=== PATIENT | female | born 1940 | race Caucasian/White ===

== ENCOUNTER → 2021-11-07 | Day surgery (SDC) | payer MEDICARE, OTHER ==
[~2021-11-07] MED LIST: DIPRIVAN 200 MG/20 ML IV ONE; Lactated Ringers 1,000 ML IV ONE; Lactated Ringers 1,000 ML IV SCH
--- NOTE | 2021-11-07 09:51 | HP ---
HISTORY OF PRESENT ILLNESS: This is a 81-year-old female who presents due to occasional indigestion, gas and nausea. She also has a history of reflux and Patel's disease. She is here for EGD. The patient denies any GI bleeding, no shortness of breath, no chest pain, no cough, no fatigue. She has lost five pounds. She has no abdominal pain and no other complaints. PAST MEDICAL HISTORY: Hypertension. Chronic obstructive pulmonary disease. Reflux. PAST SURGICAL HISTORY: Tonsillectomy and adenoidectomy. Cholecystectomy. Appendectomy. Hysterectomy. Partial colectomy. MEDICATIONS: Gabapentin, proton pump inhibitor, Enalapril, metoprolol, aspirin, fiber, clonidine, Seroquel. ALLERGIES: ERYTHROMYCIN. CODEINE. TETRACYCLINE. PREDNISONE. IODINATED CONTRAST MEDIA. SOCIAL HISTORY: Former tobacco use, quit 25 years ago. No alcohol use. FAMILY HISTORY: Lupus, coronary artery disease, breast cancer. PHYSICAL EXAMINATION: GENERAL: No acute distress. CVS: Regular rate and rhythm. PULMONARY: Nonlabored. ABDOMEN: Soft, nontender, nondistended. EXTREMITIES: Normal. DIAGNOSIS: Surveillance of Patel's disease and occasional indigestion, bloating and nausea. PLAN: EGD with biopsy.
[2021-11-07 13:43] VITALS: PULSE 65; O2SAT 93
[2021-11-07 14:25] VITALS: BP 171/81
--- NOTE | 2021-11-08 09:01 | OP ---
PROCEDURE DATE/TIME: 11/07/2021 1234 PREOPERATIVE DIAGNOSES: 1) History of Patel's esophagus. 2) Occasional indigestion and nausea. POSTOPERATIVE DIAGNOSES: 1) Mild gastritis. 2) Patel's esophagus. 3) Small hiatal hernia. PROCEDURE: EGD with biopsies. PROCEDURE PERFORMED BY: Cat Myles M.D. ESTIMATED BLOOD LOSS: Minimal. ANESTHESIA: MAC. COMPLICATIONS: None. SPECIMEN: 1) Gastric antrum to rule out Helicobacter pylori. 2) Distal esophagus at 37.5 cm. 3) Distal esophagus at 36.5 cm, known history of Patel's. HISTORY: This is a 81-year-old female who presents for surveillance of Patel's disease as well as some occasional indigestion and nausea. Risks, benefits, alternatives regarding EGD have been discussed with her in detail. She understands and agrees. She would like to proceed with EGD. DESCRIPTION OF PROCEDURE: She was brought to the endoscopy suite, laid in the left lateral decubitus position. A complete time out performed. First, a scope was inserted and gently advanced through the mouth into the oropharynx down into the esophagus, stomach and duodenum. Her duodenum looked normal. The edge of the papilla that was visualized looked normal. The scope was withdrawn into the stomach. The patient had mild gastritis in her antrum and body this is biopsied in antrum with cold forceps, site hemostatic and sent to pathology. Retroflexion view was done. She does have a small hiatal hernia that was visualized as well. The scope was then fully removed into the distal esophagus. She does have about a 1.5 cm column of what appears to be Patel's disease and then another area that is less than 1 cm with reflux changes. I biopsied all four quadrants at approximately 37.5 up 36.5 cm. Her gastroesophageal junction is at 37.5 cm. Taking bites of all concerning tissue with cold forceps and sent to pathology. We also took focused bites as well at 36.5 cm along the edge of the one column that reaches 36.5 cm as well as the adjacent quadrant to test this tissue as well. All biopsies were sent to pathology and all sites were hemostatic. The scope was then fully withdrawn. The patient tolerated the procedure very well. There were no immediate complications. She is going to be following up with me as an outpatient to discuss her pathology results. I have also recommended for her to continue dietary and lifestyle changes to decrease reflux and discussed the medications with her. She will be following as an outpatient.
== END | disposition home or self-care (01) ==
LOC: SDC 09:27
PROVIDERS: ATTEND Surgery
DX: K22.70 Barrett's esophagus without dysplasia (principal); K44.9 Diaphragmatic hernia without obstruction or gangrene; Z87.19 Personal history of other diseases of the digestive system; K30 Functional dyspepsia; R11.0 Nausea; K29.70 Gastritis, unspecified, without bleeding
CPT/HCPCS: 99100; J2704

== ENCOUNTER 2023-01-08 11:13 | Day surgery (SDC) | payer MEDICARE, OTHER ==
[2023-01-08] MEDS ORDERED: Lactated Ringers 1,000 ML IV ONE ×2 (11:29→14:24)
[2023-01-08] MEDS ORDERED: Lactated Ringers 1,000 ML IV SCH (11:30)
[2023-01-08 11:54] VITALS: O2SAT 94
[2023-01-08] MEDS ORDERED: Xylocaine-Mpf 2% 5 Ml Vial ONE (14:21)
[2023-01-08] MEDS ORDERED: DIPRIVAN 200 MG/20 ML IV ONE (14:21)
[2023-01-08 15:34] VITALS: BP 148/82; PULSE 68
--- NOTE | 2023-01-09 07:33 | OP ---
PROCEDURE DATE/TIME: 01/08/2023 1424 PREOPERATIVE DIAGNOSES: 1) Abdominal pain. 2) History of peptic ulcer disease. POSTOPERATIVE DIAGNOSES: 1) Reflux esophagitis. 2) Small hiatal hernia. 3) Moderate gastritis. PROCEDURE: EGD with biopsy. PROCEDURE PERFORMED BY: Cat Myles M.D. ESTIMATED BLOOD LOSS: Minimal. ANESTHESIA: MAC. SPECIMEN: 1) Antral biopsies. 2) Distal esophagus biopsies. COMPLICATIONS: None. HISTORY: This is a patient who has had a history of peptic ulcer disease. She presents with abdominal pain. I have treated her initially with Carafate and proton pump inhibitor and that has improved but not completely alleviated her symptoms. She would like to proceed with EGD. Her H&P and consent has been reviewed with her and completed and updated. DESCRIPTION OF PROCEDURE: She is placed in the left lateral decubitus position. A complete time out performed. The scope gently introduced into the mouth, oropharynx down to the esophagus, stomach, duodenum. The duodenum that was visualized appeared to be normal. We scoped her to the level of approximately the mid second portion of the duodenum. As the scope was withdrawn back into the stomach, she had a moderate degree of linear gastritis with multiple lines of erythema, mild edema and granularity. I biopsied the antrum and sent this to pathology. I did not find any ulcers or any other lesions of concern. The site looked hemostatic and the scope withdrawn back into the distal esophagus. At the distal esophagus, the gastroesophageal junction was identified at approximately 36 cm. She did have a small hiatal hernia here. She also had some possibly Patel's-like changes consistent with long standing reflux disease. She had one slightly irregular column that extended about 1 cm and then one small area across from this with two very tiny small islands. We took biopsies here this is from approximately 36 to 35 cm. These were taken with cold forceps and sent to pathology. All site were hemostatic. The scope is then further withdrawn. The remainder of the esophagus looked normal except for an asymptomatic and very benign-appearing small inlet patch and then the scope is completely removed. The patient tolerated the procedure very well and no immediate complications. She is going to be following up with me as an outpatient. I have written instructions for her to continue her proton pump inhibitor and Carafate therapy that we started but to slowly wean this. We will trial without proton pump inhibitor to see if her diet and lifestyle changes are enough to control her reflux disease since her symptoms have been better. I did discuss with her family that we will need to resume her proton pump inhibitor if the reflux returns this may be something she need lifelong due to the persistent symptoms. We will wait and see. The patient will follow up with me in approximately four to eight weeks.
== END 2023-01-08 15:37 | disposition home or self-care (01) ==
LOC: SDC 11:13
PROVIDERS: ATTEND Surgery
DX: K44.9 Diaphragmatic hernia without obstruction or gangrene (principal); K21.00 Gastro-esophageal reflux disease with esophagitis, without bleeding; R10.9 Unspecified abdominal pain; Z87.11 Personal history of peptic ulcer disease; K29.70 Gastritis, unspecified, without bleeding
CPT/HCPCS: 99100; J2704

== ENCOUNTER 2023-08-15 12:45 | Emergency (ER) | payer MEDICARE, OTHER ==
[2023-08-15 13:22] VITALS: TEMP 98.1
[2023-08-15] MEDS ORDERED: Sodium Chloride 0.9% 1000 ML 1,000 ML ONE (13:33)
[2023-08-15] MEDS: Sodium Chloride 0.9% 1000 ML 1,000 ML IV STA (13:35)
--- NOTE | 2023-08-15 13:37 | ERPHSYRPT ---
- History of Present Illness Time Seen by Provider: 08/15/23 13:17 Source: patient Exam Limitations: no limitations Patient Subjective Stated Complaint: "For about a week now I've been so weak and having diarrhea so many times. I've had 6 episodes of diarrhea in my bed yes terday and I had to go more in the toliet. Today I can't stop going either." Triage Nursing Assessment: Pt presents to ER with complaints of generalized weakness and diarrhea x 1 week. Pt is alert and oriented x3. Appears weak. Walks with a slow gait with assist x 1. States has had several episodes of bowel incont over the past couple of days. Abdomen is soft and nontender. Respirations are easy and unlabored. Pt is on 3L o2 via [place], wears this always at home. Pt skin is pink, warm, and dry. No peripheral edema noted. Pt does not have any pain at this time. Physician History: 83-year-old female with history of hypertension, chronic diarrhea with a short bowel presented in the ER with multiple episodes of loose stool since yesterday. Patient reports she had almost 6 episodes of diarrhea while she was in the bed as she could not make it to the bathroom. She had several episodes other than that. She has 5-6 episodes today. She is feeling a little better but weak tired and dehydrated all over. Denies any abdominal pain. Reports having similar symptoms multiple times in the past where she gets dehydrated needing IV hydration. Denies fever or chills. No vomiting or nausea. Denies any known sick contact. Allergies/Adverse Reactions: codeine Allergy (Verified 08/15/23 13:22) erythromycin base Allergy (Verified 08/15/23 13:22) Iodinated Contrast Media Allergy (Verified 08/15/23 13:22) prednisone Allergy (Verified 08/15/23 13:22) tetracycline Allergy (Verified 08/15/23 13:22) Home Medications: Enalapril Maleate 5 mg [Vasotec 5 MG] 10 mg PO BID 06/02/20 [History] Gabapentin [Neurontin] 600 mg PO TID 06/02/20 [History] Metoprolol Tartrate 25 mg [Lopressor 25MG Tab] 25 mg PO BID 06/02/20 [History] Amlodipine Besylate 5 mg [Norvasc 5 mg] 2.5 mg PO DAILY 12/12/22 [History] Clonidine HCl 0.1 mg [Clonidine 0.1 mg Tablet] 0.1 mg PO UD PRN 01/08/23 [History] Calcium Polycarbophil [Fibercon] 1 tab PO DAILY 08/15/23 [History] Hx Tetanus, Diphtheria Vaccination/Date Given: Yes Hx Influenza Vaccination/Date Given: Yes Hx Pneumococcal Vaccination/Date Given: Yes Immunizations Up to Date: Yes Travel Risk - International Travel Have you traveled outside of the country in past 3 weeks: No - Coronavirus Screening Are you exhibiting any of the following symptoms?: No Close contact with a COVID-19 positive Pt in past 14-21 Days: No - Vaccine Status Have you recieved a Covid-19 vaccination: Yes Distribution Lead: Unknown - Vaccination Dates Dates if Unknown: n/a - Review of Systems Constitutional: Fatigue, Weakness Eyes: No Symptoms Ears, Nose, & Throat: No Symptoms Respiratory: No Symptoms Cardiac: No Symptoms Abdominal/Gastrointestinal: Diarrhea Genitourinary Symptoms: No Symptoms Musculoskeletal: No Symptoms Skin: No Symptoms Neurological: Dizziness Psychological: No Symptoms Endocrine: No Symptoms Hematologic/Lymphatic: No Symptoms Immunological/Allergic: No Symptoms - Past Medical History Pertinent Past Medical History: Yes Neurological History: No Pertinent History ENT History: No Pertinent History Cardiac History: Arrhythmia, Hypertension Respiratory History: COPD Endocrine Medical History: No Pertinent History Musculoskeletal History: No Pertinent History GI Medical History: Hernia, Ulcer History: No Pertinent History Psycho-Social History: No Pertinent History Female Reproductive Disorders: No Pertinent History Other Medical History: tachycardia, oxygen at home, barretts espophagus - Past Surgical History Past Surgical History: Yes Neuro Surgical History: No Pertinent History Cardiac: No Pertinent History Respiratory: No Pertinent History Gastrointestinal: Colon Resection, Appendectomy, Cholecystectomy Genitourinary: No Pertinent History Musculoskeletal: No Pertinent History Female Surgical History: Hysterectomy Other Surgical History: exploratory kidney surgery - Social History Smoking Status: Former smoker Exposure to second hand smoke: No Drug Use: none Patient Lives Alone: No - Nursing Vital Signs Nursing Vital Signs: Initial Vital Signs Temperature 98.1 F 08/15/23 13:13 Pulse Rate 95 H 08/15/23 13:13 Respiratory Rate 18 08/15/23 13:13 Blood Pressure 121/62 08/15/23 13:13 O2 Sat by Pulse Oximetry 96 08/15/23 13:13 Pain Scale Pain Intensity 0 - Physical Exam General Appearance: no apparent distress, alert Eye Exam: PERRL/EOMI Ears, Nose, Throat Exam: normal ENT inspection, TMs normal, pharynx normal, moist mucous membranes Neck Exam: normal inspection, non-tender, supple, full range of motion Respiratory Exam: normal breath sounds, lungs clear Cardiovascular Exam: regular rate/rhythm, normal heart sounds Gastrointestinal/Abdomen Exam: soft, normal bowel sounds, No tenderness Back Exam: normal inspection Extremity Exam: normal inspection, normal range of motion Neurologic Exam: alert, oriented x 3, cooperative, shift lab technician II-XII nml as tested Skin Exam: normal color SpO2 Interpretation: normal SpO2: 96 O2 Delivery: Room Air Ordered Tests: Medication Summary Discontinued Medications Generic Name Dose Route Start Last Admin Trade Name Clemq PRN Reason Stop Dose Admin Sodium Chloride 1,000 mls @ 999 mls/hr 08/15/23 13:31 08/15/23 15:04 Sodium Chloride 0.9% 1000 Ml IV 08/15/23 14:31 Infused .Q1H1M STA Infusion Sodium Chloride Confirm 08/15/23 13:33 Sodium Chloride 0.9% 1000 Ml Administered 08/15/23 13:34 Dose 1,000 mls @ ud .ROUTE .[facility] Lab/Rad Data: Laboratory Result Diagrams 08/15/23 13:40 08/15/23 13:40 Laboratory Results 08/15/23 08/15/23 08/15/23 Range/Units 13:40 13:40 13:31 WBC 12.2 H (4.0-10.5) x10^3/uL RBC 3.89 L (4.1-5.4) x10^6/uL Hgb 10.9 L (12.0-16.0) g/dL Hct 33.4 L (35-47) % MCV 85.9 (78-100) fL MCH 28.0 (26-32) pg MCHC 32.6 (32-36) g/dL RDW 14.3 H (11.5-14.0) % Plt Count 215 (150-450) x10^3/uL MPV 8.5 (7.5-11.0) fL Gran % 77.0 H (36.0-66.0) % Immature Gran % (Auto) 0.5 H (0.00-0.4) % Nucleat RBC Rel Count 0.0 (0.00-0.1) % Eos # (Auto) 0.02 (0-0.5) x10^3/uL Immature Gran # (Auto) 0.06 H (0.00-0.03) x10^3u/L Absolute Lymphs (auto) 2.15 (1.0-4.6) x10^3/uL Absolute Monos (auto) 0.53 (0.0-1.3) x10^3/uL Absolute Nucleated RBC 0.00 (0.00-0.01) x10^3u/L Lymphocytes % 17.7 L (24.0-44.0) % Monocytes % 4.4 (0.0-12.0) % Eosinophils % 0.2 (0.00-5.0) % Basophils % 0.2 (0.0-0.4) % Absolute Granulocytes 9.38 H (1.4-6.9) x10^3/uL Basophils # 0.02 (0-0.4) x10^3/uL Sodium 133 L (137-145) mmol/L Potassium 3.8 (3.5-5.1) mmol/L Chloride 103 (98-107) mmol/L Carbon Dioxide 19 L (22-30) mmol/L Anion Gap 14.9 (5-15) MEQ/L BUN 22 H (7-17) mg/dL Creatinine 1.19 H (0.52-1.04) mg/dL Estimated GFR 45.9 ML/MIN Glucose 113 H (74-106) mg/dL Lactic Acid 1.1 (0.4-2.0) Calcium 9.4 (8.4-10.2) mg/dL Total Bilirubin 0.80 (0.2-1.3) mg/dL AST 28 (14-36) U/L ALT 21 (0-35) U/L Alkaline Phosphatase 70 (38-126) U/L Serum Total Protein 6.7 (6.3-8.2) g/dL Albumin 4.1 (3.5-5.0) g/dL Lipase 33 (23-300) U/L - Progress Progress: improved Progress Note: 08/15/23 15:39 83-year-old is evaluated in the ER for diarrhea with generalized weakness fatigue and tiredness. Patient has history of similar episodes multiple times in the past. No abdominal pain and on exam is soft nontender with good bowel sounds. She is given fluid bolus. Workup showed white count of 12, chemistries consistent with some element of dehydration with mildly low bicarb and mild elevation in BUN and creatinine. She is feeling much better on reevaluation. She does not have any diarrhea while in the ER. I do not think she needs imaging or any other workup as this is secondary to her chronic condition. I recommended increase hydration and outpatient follow-up. Discussed signs symptoms of worsening needing return to ER which she seems understanding. Stable for discharge. Counseled pt/family regarding: lab results, diagnosis, need for follow-up Medical Desision Making - Diagnostic Testing Diagnostic test were ordered, analyzed, and reviewed by me: Yes - Departure Departure Disposition: Home Clinical Impression: Dehydration, Diarrhea Condition: Stable Critical Care Time: No Referrals: REED CALERO MD [Primary Care Provider] - Follow up with PCP 1 day Instructions: Diarrhea and Traveler's Diarrhea, Adult (DC) Additional Instructions: Drink plenty of fluids to keep yourself well-hydrated. Follow-up with your primary care for reevaluation. Return to ER for any worsening of diarrhea, or if have abdominal pain, fever chills etc.
[2023-08-15 13:41] LABS: Absolute Neutrophil Ct (ANC) 9.38 x10^3/uL (1.4-6.9); BASOPHIL % 0.2 % (0.0-0.4); Basophil (Absolute #) 0.02 x10^3/uL (0-0.4); Eosinophil % 0.2 % (0.00-5.0); Eosinophil (Absolute #) 0.02 x10^3/uL (0-0.5); Hematocrit 33.4 % (35-47); Hemoglobin 10.9 g/dL (12.0-16.0); IMMATURE GRAN # 0.06 x10^3u/L (0.00-0.03); IMMATURE GRAN % 0.5 % (0.00-0.4); Lymphocyte (Absolute #) 2.15 x10^3/uL (1.0-4.6); Lymphocytes % 17.7 % (24.0-44.0); Mean Cell Volume 85.9 fL (78-100); Mean Corpuscular Hgb Concent. 32.6 g/dL (32-36); Mean Platelet Volume 8.5 fL (7.5-11.0); Monocyte (Absolute #) 0.53 x10^3/uL (0.0-1.3); Monocytes % 4.4 % (0.0-12.0); Platelet Count 215 x10^3/uL (150-450); Red Blood Count 3.89 x10^6/uL (4.1-5.4); Red Cell Distribution Width 14.3 % (11.5-14.0); White Blood Count 12.2 x10^3/uL (4.0-10.5)
[2023-08-15 14:01] LABS: ALBUMIN 4.1 g/dL (3.5-5.0); ANION GAP 14.9 MEQ/L (5-15); BILIRUBIN,TOTAL 0.8 mg/dL (0.2-1.3); Calcium 9.4 mg/dL (8.4-10.2); Creatinine 1 1.19 mg/dL (0.52-1.04); EST GLOMERULAR FILTRATION RATE 45.9 ML/MIN; Potassium 3.8 mmol/L (3.5-5.1); Total Protein 6.7 g/dL (6.3-8.2)
[2023-08-15 14:03] VITALS: BP 110/68
[2023-08-15 15:40] VITALS: O2SAT 96
[2023-08-15 15:50] VITALS: PULSE 96; RESP 18
== END 2023-08-15 16:14 | disposition home or self-care (01) ==
LOC: ED 12:45
DX: E86.0 Dehydration (principal); K52.9 Noninfective gastroenteritis and colitis, unspecified; I10 Essential (primary) hypertension; R53.1 Weakness; R53.83 Other fatigue; Z79.899 Other long term (current) drug therapy
CPT/HCPCS: 36415; 80053; 83605; 83690; 85025; 96360; 96374; 99284

== ENCOUNTER 2024-01-07 08:33 | Day surgery (SDC) | payer MEDICARE, OTHER ==
[2024-01-07] MEDS ORDERED: Lactated Ringers 1,000 ML IV ONE (08:47)
[2024-01-07] MEDS: Lactated Ringers 1,000 ML IV SCH (09:04)
[2024-01-07] MEDS ORDERED: DIPRIVAN 200 MG/20 ML IV ONE (11:05)
[2024-01-07 11:48] VITALS: RESP 18
[2024-01-07 12:01] VITALS: BP 147/76; PULSE 66; TEMP 98; O2SAT 92
--- NOTE | 2024-01-09 12:35 | OP ---
SURGERY DATE/TIME: 01/07/2024 1106 - 1120 PREOPERATIVE DIAGNOSIS: Reflux. POSTOPERATIVE DIAGNOSES: 1) Small hiatal hernia. 2) Reflux esophagitis. 3) Gastritis. PROCEDURE: Esophagogastroduodenoscopy with biopsies. SURGEON: Cat Myles MD ANESTHESIA: MAC. ESTIMATED BLOOD LOSS: Minimal. COMPLICATIONS: None. SPECIMENS: Gastric antrum, prepyloric and distal esophagus. INDICATION FOR PROCEDURE: This is an 83-year-old female who presents with upper GI symptoms here for EGD. Her complete H and P has been completed and all questions have been answered, and her consent has been obtained. DESCRIPTION OF PROCEDURE: Patient was brought to the endoscopy suite, laid in the left lateral decubitus position. Complete time-out performed. Scope gently introduced into the mouth, oropharynx, into the esophagus, stomach, duodenum. The scope was inserted to approximately the level of the second portion of the duodenum, which was normal and then, it was carefully withdrawn. At the region of the distal antrum and the pylorus, she had a raised area which was erythematous consistent with gastritis, and then, she had additional gastritis throughout the antrum. On retroflexed view, there were no other significant findings and the remainder of her stomach except for mild gastritis and a small hiatal hernia. I took biopsies at the irregular area of the antrum, which looked benign but consistent with gastritis and sent those to pathology and then, we also ensured hemostasis and did a final inspection of the remainder of her stomach and then, carefully withdrew the scope to the distal esophagus. In the distal esophagus, she had some reflux esophagitis, which was consistent with possible early Patel's. We took cold biopsies at this site, sent this to pathology. We had good hemostasis. There was a small hiatal hernia and then, the scope was able to be completely withdrawn and the remainder of the esophagus was normal. The patient tolerated the procedure very well. There were no immediate complications and then, she is going to be following up with me as an outpatient. I discussed all of this with her family and then she will be following up with me in my office as well.
== END 2024-01-07 12:05 | disposition home or self-care (01) ==
LOC: SDC 08:33
PROVIDERS: ATTEND Surgery
DX: K29.70 Gastritis, unspecified, without bleeding (principal); K44.9 Diaphragmatic hernia without obstruction or gangrene; K21.00 Gastro-esophageal reflux disease with esophagitis, without bleeding
CPT/HCPCS: 93005; 99100; J2704

== ENCOUNTER 2024-05-04 20:39 | Emergency (ER) | payer MEDICARE, OTHER ==
[2024-05-04 20:54] VITALS: TEMP 97.8
--- NOTE | 2024-05-04 20:59 | ERPHSYRPT ---
- History of Present Illness Time Seen by Provider: 05/04/24 20:50 Source: patient Exam Limitations: no limitations Patient Subjective Stated Complaint: skin tear on R lower arm from fall Triage Nursing Assessment: pt ambulatory to bed by self with steady gait, pt alert and oriented x3, pt fell around 1700 on 4 concrete steps and injuried to R lower arm, pt has skin tear to R lower arm, pt denies any other injury, pt denies blood thinners Physician History: 83yo f presents via private vehicle for right forearm skin tear that she states occurred roughly 4h [employer] after a mechanical fall onto her right arm. Pt denies h itting her head or LOC, denies any joint pain in the wrist, elbow or shoulder, denies any LOC. Pt is not currently on anticoagulants. Timing/Duration: today Quality: painful Severity: mild Location: extremities Allergies/Adverse Reactions: codeine Allergy (Verified 05/04/24 20:46) erythromycin base Allergy (Verified 05/04/24 20:46) Iodinated Contrast Media Allergy (Verified 05/04/24 20:46) prednisone Allergy (Verified 05/04/24 20:46) tetracycline Allergy (Verified 05/04/24 20:46) Home Medications: Enalapril Maleate 5 mg [Vasotec 5 MG] 10 mg PO BID 06/02/20 [History] Gabapentin [Neurontin] 600 mg PO TID 06/02/20 [History] Metoprolol Tartrate 25 mg [Lopressor 25MG Tab] 25 mg PO BID 06/02/20 [History] Amlodipine Besylate 5 mg [Norvasc 5 mg] 2.5 mg PO DAILY 12/12/22 [History] Zolpidem Tartrate [Zolpidem Tartrate ER] 6.25 mg PO HS 12/21/23 [History] Calcium Polycarbophil [Fibercon] 625 mg PO DAILY 01/07/24 [History] Clonidine HCl 0.1 mg [Clonidine 0.1 mg Tablet] 0.1 mg PO DAILY PRN PRN 01/07/24 [History] Pantoprazole Sodium [Protonix] 40 mg PO DAILY 05/04/24 [History] Hx Tetanus, Diphtheria Vaccination/Date Given: Yes Hx Influenza Vaccination/Date Given: No Hx Pneumococcal Vaccination/Date Given: Yes Travel Risk - International Travel Have you traveled outside of the country in past 3 weeks: No - Emerging Infectious Disease Are you exhibiting symptoms associated with any current EIDs: No - Review of Systems Constitutional: No Symptoms Respiratory: No Symptoms Cardiac: No Symptoms Skin: Skin Lesions - Past Medical History Pertinent Past Medical History: Yes Neurological History: No Pertinent History ENT History: Other Cardiac History: Arrhythmia, Hypertension Respiratory History: COPD Endocrine Medical History: No Pertinent History Musculoskeletal History: No Pertinent History GI Medical History: Hernia, Ulcer History: No Pertinent History Psycho-Social History: No Pertinent History Female Reproductive Disorders: No Pertinent History Other Medical History: tachycardia, oxygen at home, barretts espophagus - Past Surgical History Past Surgical History: Yes Neuro Surgical History: No Pertinent History Cardiac: No Pertinent History Respiratory: No Pertinent History Gastrointestinal: Colon Resection, Appendectomy, Cholecystectomy Genitourinary: No Pertinent History Musculoskeletal: No Pertinent History Female Surgical History: Hysterectomy Other Surgical History: exploratory kidney surgery - Social History Smoking Status: Former smoker Exposure to second hand smoke: No Drug Use: none Patient Lives Alone: No - Social Determinants of Health Will the patient participate in the screening: Declined to provide - Nursing Vital Signs Nursing Vital Signs: Initial Vital Signs Temperature 97.8 F 05/04/24 20:47 Pulse Rate 82 05/04/24 20:47 Respiratory Rate 18 05/04/24 20:47 Blood Pressure 139/65 05/04/24 20:47 O2 Sat by Pulse Oximetry 100 05/04/24 20:47 Pain Scale Pain Intensity 2 - Physical Exam General Appearance: no apparent distress Respiratory Exam: airway intact, No respiratory distress Cardiovascular Exam: regular rate/rhythm, normal heart sounds Extremity Exam: normal inspection, normal range of motion Neurologic Exam: alert, oriented x 3, cooperative, normal mood/affect, nml station & gait, sensation nml, No motor deficits, No sensory deficit Skin Exam: other (skin tear right lateral forearm, roughly 3cm, small area of exposed muscular layer, no purulence, ) SpO2 Interpretation: normal SpO2: 100 O2 Delivery: Room Air Procedures - Laceration/Wound Repair Right Upper Posterior Distal Arm Time of Procedure: 21:30 Wound Location: Right, lower arm Wound Length (cm): 4 Wound's Depth, Shape: into muscle, irregular, flap Wound Explored: to base Irrigated: Yes Hibiclens Prep: Yes Anesthesia: local, 1% Lidocaine Volume Anesthetic (ccs): 2 Wound Debrided: extensive Wound Repaired With: sutures, Steri-strips (4 steri strips) Suture Size/Type: 4-0, vicryl Number of Sutures: 3 Layer Closure?: Yes Deep Layer Suture Size/Type: 4:0 (vicryl) Number Deep Layer Sutures: 3 Sterile Dressing Applied?: Yes Splint Applied?: No Sling Applied?: No Ordered Tests: Active Orders 24 hr Category Date Time Status Prepare for Sutures STAT Care 05/04/24 20:59 Active Sutures STAT Care 05/04/24 21:00 Active - Progress Progress: improved Progress Note: 05/04/24 21:41 recommend follow up w/ PCP Dr Villalobos this week 3 internal sutures will absorb on their own leave steri strips in place until they fall off continue to wrap the wound w/ non-stick gauze and coband dressing daily, can use antibiotic ointment as well return to ED if: wound re-opens, wound starts to have green/yellow drainage, develop fevers, lose function of right hand Counseled pt/family regarding: diagnosis, need for follow-up Medical Desision Making - Risk of complications Minimal Risk: Minimal risk of morbidity - Departure Departure Disposition: Home Clinical Impression: Skin tear of right upper extremity Condition: Stable Critical Care Time: No Referrals: REED CALERO MD [Primary Care Provider] - Follow up/PCP as directed Additional Instructions: recommend follow up w/ PCP Dr Villalobos this week 3 internal sutures will absorb on their own leave steri strips in place until they fall off continue to wrap the wound w/ non-stick gauze and coband dressing daily, can use antibiotic ointment as well return to ED if: wound re-opens, wound starts to have green/yellow drainage, develop fevers, lose function of right hand
[2024-05-04] MEDS ORDERED: BACIGUENT PACKET ONE (21:46)
[2024-05-04] MEDS: BACIGUENT PACKET TP ONE (21:47)
[2024-05-04 22:02] VITALS: BP 142/72; PULSE 77; RESP 20; O2SAT 98
== END 2024-05-04 22:02 | disposition home or self-care (01) ==
LOC: ED 20:39
DX: S51.811A Laceration without foreign body of right forearm, initial encounter (principal); W10.8XXA Fall (on) (from) other stairs and steps, initial encounter; I10 Essential (primary) hypertension; Z79.899 Other long term (current) drug therapy
CPT/HCPCS: 12002; 99283; A9270-GY

== ENCOUNTER 2024-05-28 11:37 | Emergency (ER) | payer MEDICARE, OTHER ==
[2024-05-28 12:01] VITALS: RESP 18; TEMP 97.9
--- NOTE | 2024-05-28 12:05 | ERPHSYRPT ---
- History of Present Illness Time Seen by Provider: 05/28/24 12:03 Source: patient Exam Limitations: no limitations Patient Subjective Stated Complaint: pt states that she fell over her oxygen tubing yesterday Triage Nursing Assessment: pt came into the er via wheelchair; pt transferred to cot with assist of 1; pt is axo x4; c/o fall; pt states 5/10 pain to left hip; no deformity present; no shortening or rotation present to LLE; left pedal pulse present; skin PDW; no respiratory distress present; vitals wnl Physician History: This is a thin 83-year-old white female patient who arrives by private vehicle and drove in on her own secondary to pain in the left hip/groin area after an accidental fall yesterday. Patient tripped over her oxygen tubing. She had tenderness and even went to the store to go grocery shopping. Today, the pain seemed to be worse. She was using her 's walker at home. However, she did drive herself into the emergency department and walked on her own to the emergency department room. She has no pain when she is not up and ambulating. Patient has a history of hypertension, gastroesophageal reflux disease, arrhythmias, oxygen dependent COPD and Patel's esophagus. Occurred: yesterday Reason for Fall: tripped Injuries/Pain Location: pelvis (Left hip and left groin) Loss of Consciousness: no loss of consciousness Quality: aching Severity of Pain-Max: moderate (When up and ambulating) Severity of Pain-Current: mild Modifying Factors: Improves With: movement (Lying flat) Associated Symptoms (Fall): extremity injury (Left groin pain primarily when up and ambulating) Allergies/Adverse Reactions: codeine Allergy (Verified 05/28/24 11:52) erythromycin base Allergy (Verified 05/28/24 11:52) Iodinated Contrast Media Allergy (Verified 05/28/24 11:52) prednisone Allergy (Verified 05/28/24 11:52) tetracycline Allergy (Verified 05/28/24 11:52) Home Medications: Enalapril Maleate 5 mg [Vasotec 5 MG] 10 mg PO BID 06/02/20 [History] Gabapentin [Neurontin] 600 mg PO TID 06/02/20 [History] Metoprolol Tartrate 25 mg [Lopressor 25MG Tab] 25 mg PO BID 06/02/20 [History] Amlodipine Besylate 5 mg [Norvasc 5 mg] 2.5 mg PO DAILY 12/12/22 [History] Calcium Polycarbophil [Fibercon] 625 mg PO DAILY 01/07/24 [History] Clonidine HCl 0.1 mg [Clonidine 0.1 mg Tablet] 0.1 mg PO DAILY PRN PRN 01/07/24 [History] Pantoprazole Sodium [Protonix] 40 mg PO DAILY 05/04/24 [History] Eszopiclone 2 mg PO HS 05/28/24 [History] Hx Tetanus, Diphtheria Vaccination/Date Given: No (unknown) Hx Influenza Vaccination/Date Given: Yes Hx Pneumococcal Vaccination/Date Given: Yes Travel Risk - International Travel Have you traveled outside of the country in past 3 weeks: No - Emerging Infectious Disease Are you exhibiting symptoms associated with any current EIDs: No - Review of Systems Constitutional: No Symptoms Eyes: No Symptoms Ears, Nose, & Throat: No Symptoms Respiratory: No Symptoms Cardiac: No Symptoms Abdominal/Gastrointestinal: No Symptoms Genitourinary Symptoms: No Symptoms Musculoskeletal: Fall, Injury (Left hip and left groin pain when up and ambulating), Other (Left groin pain when up and ambulating) Skin: No Symptoms Neurological: No Symptoms Psychological: No Symptoms Endocrine: No Symptoms Hematologic/Lymphatic: No Symptoms Immunological/Allergic: No Symptoms All Other Systems: Reviewed and Negative - Past Medical History Pertinent Past Medical History: Yes Neurological History: No Pertinent History ENT History: Other Cardiac History: Arrhythmia, Hypertension Respiratory History: COPD Endocrine Medical History: No Pertinent History Musculoskeletal History: No Pertinent History GI Medical History: Hernia, Ulcer History: No Pertinent History Psycho-Social History: No Pertinent History Female Reproductive Disorders: No Pertinent History Other Medical History: tachycardia, oxygen at home, barretts espophagus - Past Surgical History Past Surgical History: Yes Neuro Surgical History: No Pertinent History Cardiac: No Pertinent History Respiratory: No Pertinent History Gastrointestinal: Colon Resection, Appendectomy, Cholecystectomy Genitourinary: No Pertinent History Musculoskeletal: No Pertinent History Female Surgical History: Hysterectomy Other Surgical History: exploratory kidney surgery - Social History Smoking Status: Former smoker Exposure to second hand smoke: No Drug Use: none Patient Lives Alone: No - Social Determinants of Health Will the patient participate in the screening: Declined to provide - Nursing Vital Signs Nursing Vital Signs: Initial Vital Signs Temperature 97.9 F 05/28/24 11:45 Pulse Rate 77 05/28/24 11:45 Respiratory Rate 18 05/28/24 11:45 Blood Pressure 135/77 05/28/24 11:45 O2 Sat by Pulse Oximetry 98 05/28/24 11:45 Pain Scale Pain Intensity 5 - Sarah Coma Score Best Eye Response ([place]): (4) open spontaneously Best Verbal Response ([place]): (5) oriented Best Motor Response ([place]): (6) obeys commands [place] Total: 15 - Physical Exam General Appearance: no apparent distress, alert, anxiety, thin Head Injury: no evidence of injury Eye Exam: PERRL/EOMI, eyes nml inspection ENT Exam: airway nml, nml ext.inspection Neck Exam: supple, trachea midline, full range of motion, normal alignment, normal inspection Respiratory/Chest Exam: normal breath sounds, No chest tenderness, No respiratory distress, No ecchymosis, No crepitus Cardiovascular Exam: normal heart sounds, regular rate/rhythm Gastrointestinal Exam: soft, normal bowel sounds, No tenderness Rectal Exam: not done Back Exam: normal inspection, normal range of motion, No CVA tenderness Extremity Exam: normal inspection (No evidence of shortening or rotation of her left lower extremity), pelvis stable, limited range of motion (When lying flat and attempting to elevate her left lower extremity, there is pain in the left groin area), bony point tenderness (Pain left groin/inguinal region), hip tenderness (Left side), pain with movement (Left lower extremity), No evidence of injury Neurologic Exam: alert, oriented x 3, cooperative, social media senior associate II-XII nml as tested, sensation nml Skin Exam: normal color, warm, dry SpO2 Interpretation: normal SpO2: 98 O2 Delivery: Room Air - Course Nursing assessment & vital signs reviewed: Yes Ordered Tests: Active Orders 24 hr Category Date Time Status HIP UNI (2V) INCL PEL IF DONE Stat Exams 05/28/24 12:04 Completed - Progress Progress: unchanged, pain not gone completely Progress Note: 05/28/24 12:29 My medical decision making and the assignment of low complexity to this patient's medical issue today is based on review of the patient's past medical history, review of the patient's medication list, reviewed patient drug allergy list, history present illness and physical findings on examination. The workup today includes x-ray of the pelvis and left hip. Differential diagnosis includes but is not limited to left hip contusion, left hip fracture/dislocation, left inferior/superior rami fracture 05/28/24 12:50 The x-ray of the left hip and pelvis was interpreted by the radiologist and I reviewed the impression. The impression states osteopenia and moderate degenerative spondylosis and visualized lower lumbar spine. No other bony, articular, or soft tissue abnormalities. 05/28/24 12:54 Patient states that she can take hydrocodone. She has had Vicodin in the past. Counseled pt/family regarding: diagnosis, need for follow-up, rad results Medical Desision Making - Diagnostic Testing Diagnostic test were ordered, analyzed, and reviewed by me: Yes Radiological Interpretation: Reviewed by me, Teleradiologist Report - Risk of complications The pt has a mod risk of morbidity or mortality based on: Need for prescription drug management - Departure Departure Disposition: Home Clinical Impression: Fall with no significant injury Condition: Stable Critical Care Time: No Referrals: REED CALERO MD [Primary Care Provider] - Follow up/PCP as directed Additional Instructions: Alternate ice and heat to tender areas of the left hip and left groin. Do not apply directly to the skin. Do this for approximately 2 to 3 days 3 times a day. Follow-up with [facility] orthopedic clinic. It is an outpatient clinic that does not require an appointment. You need to arrive approximately 8:00 in the morning on 06/02/2024. Take your med ications as prescribed. If there are no contraindications to taking ibuprofen, take 400 mg orally 3-4 times a day with food for the next 72 hours. Prescriptions: Hydrocodone/APAP 5/325 [[place] 5/325 mg] 1 each PO Q12H PRN PRN #8 tablet MDD 2 PRN Reason: Pain
--- NOTE | 2024-05-28 12:44 | XRAY ---
Indication: Left hip pain following fall. Comparison: None AP pelvis and 2 view left hip demonstrates osteopenia and moderate degenerative spondylosis visualized lower lumbar spine. No other bony, articular, or soft tissue abnormalities.
[2024-05-28 13:22] VITALS: BP 101/50; PULSE 72; O2SAT 98
== END 2024-05-28 13:23 | disposition home or self-care (01) ==
LOC: ED 11:37
DX: Z04.3 Encounter for examination and observation following other accident (principal); M25.552 Pain in left hip; W01.0XXA Fall on same level from slipping, tripping and stumbling without subsequent striking against object, initial encounter; I10 Essential (primary) hypertension; Z79.899 Other long term (current) drug therapy; Z79.891 Long term (current) use of opiate analgesic
CPT/HCPCS: 73502; 99282; 99283

== ENCOUNTER 2024-06-01 07:25 | Observation (INO) | payer MEDICARE, OTHER ==
[2024-06-01] MEDS ORDERED: Zofran 4 MG/2 ML VIAL ONE ×2 (07:49→11:08)
[2024-06-01] MEDS ORDERED: PROTONIX 40 MG IV IV ONE (07:49)
[2024-06-01] MEDS ORDERED: Sodium Chloride 0.9% 1000 ML 1,000 ML ONE (07:49)
[2024-06-01] MEDS: PROTONIX 40 MG IV IV ONE (07:51)
[2024-06-01] MEDS: Sodium Chloride 0.9% 1000 ML 1,000 ML IV STA (07:51)
[2024-06-01] MEDS: Zofran 4 MG/2 ML VIAL IV ONE ×2 (07:51→11:09)
--- NOTE | 2024-06-01 07:57 | ERPHSYRPT ---
- History of Present Illness Time Seen by Provider: 06/01/24 07:54 Historian: patient Exam Limitations: no limitations Patient Subjective Stated Complaint: c/o vomiting Triage Nursing Assessment: patient brought into ED by ambulance with c/o vomitt ing and diarrhea. Patient states that she has been vomitting and had diarrhea all night, doesn't know when it started or when it ended. Patient has abdominal pain in the upper quads that starts in the middle and radiates to the side. bowel sounds present in all 4 quads, vitals wnl, on 3L of oxygen nasal cannula. Last BM last night, skin w/n/d, pulses normal, patient doesn't appear to be in any distress at this time, Physician History: c/o vomitting and diarrhea. Patient states that she has been vomitting and had diarrhea all night, doesn't know when it started or when it ended. Patient has abdominal pain in the upper quads that starts in the middle and radiates to the side. Timing/Duration: day(s) (2-3 days) Activities at Onset: none Quality: cramping Abdominal Pain Onset Location: RUQ, LUQ, epigastric Pain Radiation: back Severity of Pain-Max: moderate Severity of Pain-Current: moderate Modifying Factors: Improves With: nothing Associated Symptoms: diarrhea, vomiting, other (black stools) Previous symptoms: no prior history Allergies/Adverse Reactions: codeine Allergy (Verified 06/01/24 07:43) erythromycin base Allergy (Verified 06/01/24 07:43) Iodinated Contrast Media Allergy (Verified 06/01/24 07:43) prednisone Allergy (Verified 06/01/24 07:43) tetracycline Allergy (Verified 06/01/24 07:43) Home Medications: Enalapril Maleate 5 mg [Vasotec 5 MG] 10 mg PO BID 06/02/20 [History] Gabapentin [Neurontin] 600 mg PO TID 06/02/20 [History] Metoprolol Tartrate 25 mg [Lopressor 25MG Tab] 25 mg PO BID 06/02/20 [History] Amlodipine Besylate 5 mg [Norvasc 5 mg] 2.5 mg PO DAILY 12/12/22 [History] Calcium Polycarbophil [Fibercon] 625 mg PO DAILY 01/07/24 [History] Clonidine HCl 0.1 mg [Clonidine 0.1 mg Tablet] 0.1 mg PO DAILY PRN PRN 01/07/24 [History] Pantoprazole Sodium [Protonix] 40 mg PO DAILY 05/04/24 [History] Eszopiclone 2 mg PO HS 05/28/24 [History] Hx Tetanus, Diphtheria Vaccination/Date Given: No (unknown) Hx Influenza Vaccination/Date Given: Yes Hx Pneumococcal Vaccination/Date Given: Yes Travel Risk - International Travel Have you traveled outside of the country in past 3 weeks: No - Emerging Infectious Disease Are you exhibiting symptoms associated with any current EIDs: Yes Symptoms: Abdominal Pain, Diarrhea, Vomitting - Review of Systems Constitutional: Malaise, Weakness, No Fever, No Chills Eyes: No Symptoms Ears, Nose, & Throat: No Symptoms Respiratory: No Cough, No Dyspnea Cardiac: No Chest Pain, No Edema, No Syncope Abdominal/Gastrointestinal: Abdominal Pain, Nausea, Vomiting, Hematochezia, Appetite Changes, No Diarrhea Genitourinary Symptoms: No Dysuria Musculoskeletal: No Back Pain, No Neck Pain Skin: No Rash Neurological: No Dizziness, No Focal Weakness, No Sensory Changes Psychological: No Symptoms Endocrine: No Symptoms All Other Systems: Reviewed and Negative - Past Medical History Pertinent Past Medical History: Yes Neurological History: No Pertinent History ENT History: Other Cardiac History: Arrhythmia, Hypertension Respiratory History: COPD Endocrine Medical History: No Pertinent History Musculoskeletal History: No Pertinent History GI Medical History: Hernia, Ulcer History: No Pertinent History Psycho-Social History: No Pertinent History Female Reproductive Disorders: No Pertinent History Other Medical History: tachycardia, oxygen at home, barretts espophagus - Past Surgical History Past Surgical History: Yes Neuro Surgical History: No Pertinent History Cardiac: No Pertinent History Respiratory: No Pertinent History Gastrointestinal: Colon Resection, Appendectomy, Cholecystectomy Genitourinary: No Pertinent History Musculoskeletal: No Pertinent History Female Surgical History: Hysterectomy Other Surgical History: exploratory kidney surgery - Social History Smoking Status: Former smoker Exposure to second hand smoke: No Drug Use: none Patient Lives Alone: No - Social Determinants of Health Will the patient participate in the screening: Declined to provide - Nursing Vital Signs Nursing Vital Signs: Initial Vital Signs Temperature 97.8 F 06/01/24 07:28 Pain Scale Pain Intensity 4 - Physical Exam General Appearance: moderate distress, alert Eye Exam: PERRL/EOMI, eyes nml inspection Ears, Nose, Throat Exam: normal ENT inspection, pharynx normal, moist mucous membranes Neck Exam: normal inspection, non-tender, supple, full range of motion Respiratory Exam: normal breath sounds, lungs clear, No respiratory distress Cardiovascular Exam: regular rate/rhythm, normal heart sounds Gastrointestinal/Abdomen Exam: soft, tenderness, guarding, No mass, No pulsatile mass, No rebound, No hernia Back Exam: normal inspection, normal range of motion, No CVA tenderness, No vertebral tenderness Extremity Exam: normal inspection, normal range of motion, pelvis stable Neurologic Exam: alert, oriented x 3, cooperative, normal mood/affect, nml cerebellar function, sensation nml, No motor deficits Skin Exam: normal color, warm, dry - Course Nursing assessment & vital signs reviewed: Yes - CT Exams Abdomen/Pelvis CT Interpretation: Tele-radiologist Report Ordered Tests: Active Orders 24 hr Category Date Time Status EKG-ER Only STAT Care 06/01/24 07:42 Active ABDOMEN AND PELVIS W/0 CONTRAS [CT] Stat Exams 06/01/24 08:38 Completed AMYLASE Stat Lab 06/01/24 07:45 Completed BLOOD CULTURE Stat Lab 06/01/24 08:50 Received CBC W DIFF Stat Lab 06/01/24 08:10 Completed CMP Stat Lab 06/01/24 07:45 Completed LIPASE Stat Lab 06/01/24 07:45 Completed MAGNESIUM Stat Lab 06/01/24 07:45 Completed Occult Blood-Fecal Screen (Diagnostic) [OB-FECAL SCREEN Lab 06/01/24 Ordered ] Stat TROPONIN Q4H Lab 06/01/24 08:10 Completed TROPONIN Q4H Lab 06/01/24 11:45 Ordered TROPONIN Q4H Lab 06/01/24 15:45 Ordered UA W/RFX UR CULTURE Stat Lab 06/01/24 07:42 Ordered Medication Summary Generic Name Dose Route Start Last Admin Trade Name Freq PRN Reason Stop Dose Admin Oral Electrolytes 1,000 ml 06/01/24 09:45 06/01/24 09:47 Electrolyte,Oral 1000 Ml Bottle (Pedialyte) PO 06/01/24 09:46 1,000 ml STAT ONE Administration Discontinued Medications Generic Name Dose Route Start Last Admin Trade Name Freq PRN Reason Stop Dose Admin Sodium Chloride 1,000 mls @ 999 mls/hr 06/01/24 07:42 06/01/24 07:51 Sodium Chloride 0.9% 1000 Ml IV 06/01/24 08:42 999 mls/hr .Q1H1M STA Administration Sodium Chloride Confirm 06/01/24 07:49 Sodium Chloride 0.9% 1000 Ml Administered 06/01/24 07:50 Dose 1,000 mls @ ud .ROUTE .STK-MED ONE Ondansetron HCl 4 mg 06/01/24 07:42 06/01/24 07:51 Ondansetron Hcl 4 Mg/2 Ml Vial IV 06/01/24 07:43 4 mg STAT ONE Administration Ondansetron HCl Confirm 06/01/24 07:49 Ondansetron Hcl 4 Mg/2 Ml Vial Administered 06/01/24 07:50 Dose 4 mg .ROUTE .STK-MED ONE Pantoprazole Sodium 40 mg 06/01/24 07:42 06/01/24 07:51 Pantoprazole 40 Mg Vial IV 06/01/24 07:43 40 mg STAT ONE Administration Pantoprazole Sodium Confirm 06/01/24 07:49 Pantoprazole 40 Mg Vial Administered 06/01/24 07:50 Dose 40 mg IV .STK-MED ONE Lab/Rad Data: Laboratory Result Diagrams 06/01/24 08:10 06/01/24 07:45 Laboratory Results 06/01/24 06/01/24 06/01/24 Range/Units 08:10 08:10 07:45 WBC 10.5 H (3.98-10.04) x10^3/uL RBC 4.55 (3.93-5.22) x10^6/uL Hgb 12.8 (11.2-15.7) g/dL Hct 39.5 (34.1-44.9) % MCV 86.8 (79.4-94.8) fL MCH 28.1 (25.6-32.2) pg MCHC 32.4 (32.2-35.5) g/dL RDW 14.2 (11.7-14.4) % Plt Count 221 (182-369) x10^3/uL MPV 9.8 (9.4-12.3) fL Gran % 64.0 (34.0-71.1) % Immature Gran % (Auto) 0.2 (0.001-0.429) % Nucleat RBC Rel Count 0.0 (0.00-0.2) % Eos # (Auto) 0.04 (0.04-0.36) x10^3/uL Immature Gran # (Auto) 0.02 (0.001-0.031) x10^3u/L Absolute Lymphs (auto) 3.26 (1.18-3.74) x10^3/uL Absolute Monos (auto) 0.42 (0.24-0.86) x10^3/uL Absolute Nucleated RBC 0.00 (0.00-0.012) x10^3u/L Lymphocytes % 31.2 (19.3-51.7) % Monocytes % 4.0 L (4.7-12.5) % Eosinophils % 0.4 L (0.7-5.8) % Basophils % 0.2 (0.1-1.2) % Absolute Granulocytes 6.70 H (1.56-6.13) x10^3/uL Basophils # 0.02 (0.01-0.08) x10^3/uL Sodium 133 L (135-145) mmol/L Potassium 5.0 (3.5-5.1) mmol/L Chloride 106 (98-107) mmol/L Carbon Dioxide 19 L (22-30) mmol/L Anion Gap 13.4 (5-15) MEQ/L BUN 25 H (7-17) mg/dL Creatinine 0.95 (0.52-1.04) mg/dL Estimated GFR 59.8 ML/MIN Glucose 110 H (74-106) mg/dL Calcium 10.3 H (8.4-10.2) mg/dL Magnesium 1.8 (1.6-2.3) mg/dL Total Bilirubin 0.80 (0.2-1.3) mg/dL AST 26 (14-36) U/L ALT 20 (0-35) U/L Alkaline Phosphatase 69 (38-126) U/L Troponin I < 0.012 (0.000-0.033) ng/mL Serum Total Protein 6.7 (6.3-8.2) g/dL Albumin 4.1 (3.5-5.0) g/dL Amylase 73 (30-110) U/L Lipase 112 (23-300) U/L CLINICAL HISTORY: abdominal pain COMPARISON: None TECHNIQUE: Non-contrast CT of the abdomen and pelvis was performed, with the following protocol: axial images, and reconstructed coronal and sagittal images. No intravenous contrast was administered. One of the following dose reduction techniques was utilized for this exam: Automated exposure control, adjustment of the mA and/or kV according to patient size, and use of iterative reconstruction. FINDINGS: Abdomen: Liver: Normal in size, shape, and density. No focal lesions, cysts, or masses were identified. Gallbladder and Biliary System: The gallbladder is surgically removed. Pancreas: Pancreatic head, body, and tail are visualized and appear normal in size and density. No pancreatic masses or calcifications were noted. PatientID: [id number] Patient Name: BARBER ALBARRAN Exam Date: 06/01/2024 Procedure: ABDOMEN AND PELVIS W/0 CONTRAS page 1 of 2 Spleen: Normal in size, shape, and density. No splenic lesions or masses were identified. Few calcific foci were noted suggesting old granulomas. Kidneys and Adrenal Glands: Both kidneys are normal in size, shape, and position. Cortical thickness is within normal limits. No renal calculi or hydronephrosis. Adrenal glands are unremarkable. Right simple renal cysts the largest is exophytic from the lower pole and measures 2.3cm. Pelvis: Urinary Bladder: Normal in contour and wall thickness. No intraluminal lesions. Uterus: surgically removed Ovaries: Not well visualized but no gross abnormalities noted. Vagina: Normal in contour and wall thickness. Cervix: No evidence of mass or abnormal thickening. Peritoneal and Retroperitoneal Structures: Mild pelvic free fluid noted Nonspecificc subtle peritoneal stranding noted Bowel: Dilated deuce loops measuring up to 3.3 cm in caliber with no air-fluid levels noted, no sizable masses Metallic sutures were noted in the descending colon, suggesting prior surgery. The appendix is not seen, yet no signs of acute appendicitis. Bones and Soft Tissues: Pelvic bones and soft tissues are unremarkable. No fractures or abnormal masses were identified. Spine degenerative changes noted Lung bases show a calcified nodule measuring 4 mm in the left lower lobe. IMPRESSION: 1. Dilated jejunal loops measuring up to 3.3 cm in caliber with no air-fluid levels noted, no sizable masses with mild pelvic free fluid noted. Close follow-up with post-contrast study and clinical correlation is advised to exclude the possibility of early/subacute adhesive small bowel obstruction. 2. Right simple renal cysts the largest is exophytic from the lower pole and measures 2.3cm. DAPHNIEMauri Reveles. [facility] ER was called at [phone] at 8:03 AM HANDKERCHIEF SAMPLE CLERK, 06/01/2024,and nurse Dawna was informed regarding the presence of important medical findings. - Progress Progress: unchanged Progress Note: 06/01/24 09:50 Patient is feeling much better. Nausea and vomiting has resolved. Abdominal pain is also better. CAT scan results discussed with patient and her friend. Patient states that she has to take care of her who has a Alzheimer dementia so she would prefer to go home and all her symptoms are much better to. I explained her that she should stay on full liquid diet for now in 24 hours. If none of any of the symptoms recur then she should go on regular diet. But if her nausea and vomiting and abdominal pain comes back then she needs to come back to the emergency room. I also offered her admission as observation for 24 hours but patient preferred that if she can go home because of her 's condition. Patient and her friend they both are in agreement of going home stay on clear to full liquid diet for next 24 hours and follow-up with either primary care physician or if symptoms get worse come back to the emergency room. 06/01/24 10:13 After p.o. fluid challenge patient got nauseated and had abdominal pain show she agreed to stay in hospital as an observation. Counseled pt/family regarding: lab results, diagnosis, need for follow-up, rad results Medical Desision Making - Independent Historian Additional History obtained from: Relative/friend - Risk of complications Low Risk: Low risk of morbidity from additional dx testing or treatment - Departure Departure Disposition: Observation Clinical Impression: Nausea and vomiting in adult patient, Dehydration, Small bowel obstruction, partial Diarrhea Qualifiers: Diarrhea type: unspecified type Qualified Code(s): R19.7 - Diarrhea, unsp ecified Condition: Stable Critical Care Time: No Referrals: REED CALERO MD [Primary Care Provider] - Follow up with PCP 1 day Instructions: Small bowel obstruction, Small bowel obstruction - Discharge instructions Additional Instructions: You may have partial small bowel blockage according to the CAT scan of the abdomen. Because you have a iodine contrast allergy we could not do it with dye which would have given us more detailed picture. Please stay on full to clear liquid diet for next 24 hours if your symptoms recur come back to the emergency room follow-up with your primary care physician next day. As after fluid challenge She developed nausea and abdominal pain, so we have decided to keep patient as observation. Discharge/Care Plan BARBER ALBARRAN was seen on 06/01/24 in the Emergency Room. The patient was counseled regarding Diagnosis,Lab results, Imaging studies, need for follow up and when to return to the Emergency Room. Prescriptions given: Discharge Note I have spoken with the patient and/or caregivers. I have explained the patient's condition, diagnosis and treatment plan based on the information available to me at this time. I have answered the patient's and/or caregiver's questions and addressed any concerns. The patient and/or caregivers have as good understanding of the patient's diagnosis, condition and treatment plan as can be expected at this point. The vital signs have been stable. The patient's condition is stable and appropriate for discharge from the emergency department. The patient will pursue further outpatient evaluation with the primary care physician or other designated or consulting physician as outlined in the discharge instructions. The patient and/or caregivers are agreeable to this plan of care and follow-up instructions have been explained in detail. The patient and/or caregivers have received these instruction. The patient/and or caregivers are aware that any significant change in condition or worsening of symptoms should prompt an immediate return to this or the closest emergency department or call 911. BARBER ALBARRAN was seen on 06/01/24 n the Emergency Room. At that time you were treated for an emergent condition, during your visit Laboratory, Radiology and/or other procedures may have been ordered. It is very important that you follow-up with your Primary Care Physician REED CALERO MD within the next 24-48 hours to review your Emergency Room visit and the final results of testing that was ordered. Some test results such as Urine Cultures, Blood Cultures, and other cultures if ordered will not be finalized for 24-48 hours. If you do not have a Primary Care Provider please call the medical records department at [phone] ext [phone] to obtain a copy of your results or you may sign into our patient portal to obtain these results by visiting us @ [email or web address] and completing the following steps: 1. Click on the Patient Portal link 2. Click the Patient Self Enrollment Link to complete the enrollment form and entering your 3. Once the enrollment form is completed you will receive an email with a temporary ID and password at the email address you provided. 4. Next choose a user name and password. Your user name must be at least 4 characters long and your password must be at least 4 characters long. 5. Choose a security question from the list and provide your answer to the question. If you already have signed into the Health Portal you may access your Health Care Information 22/01 by the following steps: 1. Login to our website @ [email or web address] 2. Enter your original user name and password. FAQS The [facility] Health Portal is an online tool that contains your Lab Results, Radiology Reports, Visit History, Discharge Instructions and Health Summary Lab and Radiology Results will not be available for 72 hours on the portal. The Portal is a secure site, passwords are encryted and URLs are re-written so they cannot be copied and pasted. You and authorized family members are the only ones who can access your Portal. Also there is a timeout feature that protects your information if you leave the Portal page open. If you have technical difficulty please use the Contact Us link on the page this will allow you to submit any questions you have regarding the Portal or you may contact the Medical Record Department at [phone] ext [phone]. Prescriptions: Ondansetron ODT 4 MG [Zofran Odt 4 mg] 4 mg PO Q6H PRN PRN #20 tablet PRN Reason: Nausea/Vomiting
[2024-06-01 08:19] LABS: ALBUMIN 4.1 g/dL (3.5-5.0); ANION GAP 13.4 MEQ/L (5-15); BILIRUBIN,TOTAL 0.8 mg/dL (0.2-1.3); Calcium 10.3 mg/dL (8.4-10.2); Creatinine 1 0.95 mg/dL (0.52-1.04); EST GLOMERULAR FILTRATION RATE 59.8 ML/MIN; MAGNESIUM 1.8 mg/dL (1.6-2.3); Total Protein 6.7 g/dL (6.3-8.2)
[2024-06-01 09:13] LABS: BASOPHIL % 0.2 % (0.1-1.2); Basophil (Absolute #) 0.02 x10^3/uL (0.01-0.08); Eosinophil % 0.4 % (0.7-5.8); Eosinophil (Absolute #) 0.04 x10^3/uL (0.04-0.36); Hematocrit 39.5 % (34.1-44.9); Hemoglobin 12.8 g/dL (11.2-15.7); IMMATURE GRAN # 0.02 x10^3u/L (0.001-0.031); IMMATURE GRAN % 0.2 % (0.001-0.429); Lymphocyte (Absolute #) 3.26 x10^3/uL (1.18-3.74); Lymphocytes % 31.2 % (19.3-51.7); Mean Cell Volume 86.8 fL (79.4-94.8); Mean Corpuscular Hemoglobin 28.1 pg (25.6-32.2); Mean Corpuscular Hgb Concent. 32.4 g/dL (32.2-35.5); Mean Platelet Volume 9.8 fL (9.4-12.3); Monocyte (Absolute #) 0.42 x10^3/uL (0.24-0.86); Platelet Count 221 x10^3/uL (182-369); Red Blood Count 4.55 x10^6/uL (3.93-5.22); Red Cell Distribution Width 14.2 % (11.7-14.4); White Blood Count 10.5 x10^3/uL (3.98-10.04)
--- NOTE | 2024-06-01 09:18 | XRAY ---
CLINICAL HISTORY: abdominal pain COMPARISON: None TECHNIQUE: Non-contrast CT of the abdomen and pelvis was performed, with the following protocol: axial images, and reconstructed coronal and sagittal images. No intravenous contrast was administered. One of the following dose reduction techniques was utilized for this exam: Automated exposure control, adjustment of the mA and/or kV according to patient size, and use of iterative reconstruction. FINDINGS: Abdomen: Liver: Normal in size, shape, and density. No focal lesions, cysts, or masses were identified. Gallbladder and Biliary System: The gallbladder is surgically removed. Pancreas: Pancreatic head, body, and tail are visualized and appear normal in size and density. No pancreatic masses or calcifications were noted. Spleen: Normal in size, shape, and density. No splenic lesions or masses were identified. Few calcific foci were noted suggesting old granulomas. Kidneys and Adrenal Glands: Both kidneys are normal in size, shape, and position. Cortical thickness is within normal limits. No renal calculi or hydronephrosis. Adrenal glands are unremarkable. Right simple renal cysts the largest is exophytic from the lower pole and measures 2.3cm. Pelvis: Urinary Bladder: Normal in contour and wall thickness. No intraluminal lesions. Uterus: surgically removed Ovaries: Not well visualized but no gross abnormalities noted. Vagina: Normal in contour and wall thickness. Cervix: No evidence of mass or abnormal thickening. Peritoneal and Retroperitoneal Structures: Mild pelvic free fluid noted Nonspecificc subtle peritoneal stranding noted Bowel: Dilated deuce loops measuring up to 3.3 cm in caliber with no air-fluid levels noted, no sizable masses Metallic sutures were noted in the descending colon, suggesting prior surgery. The appendix is not seen, yet no signs of acute appendicitis. Bones and Soft Tissues: Pelvic bones and soft tissues are unremarkable. No fractures or abnormal masses were identified. Spine degenerative changes noted Lung bases show a calcified nodule measuring 4 mm in the left lower lobe. IMPRESSION: 1. Dilated jejunal loops measuring up to 3.3 cm in caliber with no air-fluid levels noted, no sizable masses with mild pelvic free fluid noted. Close follow-up with post-contrast study and clinical correlation is advised to exclude the possibility of early/subacute adhesive small bowel obstruction. 2. Right simple renal cysts the largest is exophytic from the lower pole and measures 2.3cm. NAUN 1[facility] was called at [phone] at 8:03 AM HEAD MACHINE FEEDER, 06/01/2024,and nurse Toney was informed regarding the presence of important medical findings. Electronically Signed by: Danisha Duke MD. (06/01/2024 09:15:16 EST)
[2024-06-01] MEDS: Pedialyte PO ONE (09:47)
[2024-06-01 10:56] LABS: Appearance Clear (Clear); Bacteria None Seen /HPF (None Seen); Bilirubin Negative (Negative); Blood Negative (Negative); Epithelial Cells Rare /HPF (None Seen); Glucose, Urine Negative (Negative); Hyaline Casts NONE SEEN /LPF (0-2); Ketones Negative (Negative); Leukocyte Esterase Negative (Negative); Nitrite Negative (Negative); Ph 5.5 (4.6-8.0); Protein,Urine Dip Negative (Negative); RBC 0-2 /HPF (0-5); Specific Gravity 1.015 (1.005-1.030); Urobilinogen 0.2 mg/dL (0.2)
--- NOTE | 2024-06-01 11:47 | PCM.HP ---
<BRITNEY PETERSON - Last Filed: 06/01/24 12:20> History of Present Illness - Chief Complaint Chief Complaint: small bowel obstruction Date: 06/01/24 History of Present Illness: is a 84 year old female with pmhx of HTN, COPD (baseline 3lNC), arrythmia, hernia, and ulcer. 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 Today she was brought into ED by ambulance with c/o vomiting and diarrhea. Patient states that she has been vomiting and had diarrhea all night, doesn't know when it started or when it ended. Patient has abdominal pain in the upper quads that starts in the middle and radiates to the side. Decreased bowel sounds present in all 4 quads, vitals wnl, on 3L of oxygen nasal cannula. Reports several BM's of diarrhea last night and this AM, skin w/n/d, pulses normal, patient doesn't appear to be in any distress at this time. She reported some nausea today after trying to drink pedialyte in the ER. She last vomited yesterday. She continues to have abd pain but not severe and describes it as feeling like she needs to have a BM. IV fulids, Zofran, protonix gave in ER and will continue. CT abd shows early SBO. Will keep pt NPO and continue IV fluids. She denies any further concerns at this time. - Review of Systems Constitutional: No Fever, No Chills Eyes: No Symptoms Ears, Nose, & Throat: No Symptoms Respiratory: No Cough, No Short Of Breath Cardiac: No Chest Pain, No Edema, No Syncope Abdominal/Gastrointestinal: Abdominal Pain, Nausea, Vomiting, Diarrhea Genitourinary Symptoms: No Dysuria Musculoskeletal: No Back Pain, No Neck Pain Skin: No Rash Neurological: No Dizziness, No Focal Weakness, No Sensory Changes Psychological: No Symptoms Endocrine: No Symptoms Hematologic/Lymphatic: No Symptoms Immunological/Allergic: No Symptoms Medications & Allergies Home Medications: Home Medication List Enalapril Maleate 5 mg [Vasotec 5 MG] 10 mg PO BID 06/02/20 [History Confirmed 06/01/24] Gabapentin [Neurontin] 600 mg PO TID 06/02/20 [History Confirmed 06/01/24] Metoprolol Tartrate 25 mg [Lopressor 25MG Tab] 25 mg PO BID 06/02/20 [History Confirmed 06/01/24] Amlodipine Besylate 5 mg [Norvasc 5 mg] 2.5 mg PO DAILY 12/12/22 [History Confirmed 06/01/24] Clonidine HCl 0.1 mg [Clonidine 0.1 mg Tablet] 0.1 mg PO DAILY PRN PRN 01/07/24 [History Confirmed 06/01/24] Pantoprazole Sodium [Protonix] 40 mg PO DAILY 05/04/24 [History Confirmed 06/01/24] Eszopiclone 2 mg PO HS 05/28/24 [History Confirmed 06/01/24] Fluticasone/Umeclidin/Vilanter [Trelegy Ellipta 200-62.5-25] 1 puff IH DAILY 06/01/24 [History Confirmed 06/01/24] Ondansetron ODT 4 MG [Zofran Odt 4 mg] 4 mg PO Q6H PRN PRN #20 tablet 06/01/24 [Rx] levalbuterol HCL [Levalbuterol HCl] 1 vial IH TID 06/01/24 [History Confirmed 06/01/24] Allergies/Adverse Reactions: Allergies Allergy/AdvReac Type Severity Reaction Status Date / Time codeine Allergy Verified 06/01/24 07:43 erythromycin base Allergy Verified 06/01/24 07:43 Iodinated Contrast Media Allergy Verified 06/01/24 07:43 prednisone Allergy Verified 06/01/24 07:43 tetracycline Allergy Verified 06/01/24 07:43 - Past Medical History Past Medical History: Yes Neurological History: No Pertinent History ENT History: Other Cardiac History: Arrhythmia, Hypertension Respiratory History: COPD Endocrine Medical History: No Pertinent History Musculoskelatal History: No Pertinent History GI Medical History: Hernia, Ulcer History: No Pertinent History Pyscho-Social History: No Pertinent History Reproductive Disorders: No Pertinent History Comment: tachycardia, oxygen at home, barretts espophagus - Past Surgical History Past Surgical History: Yes Neuro Surgical History: No Pertinent History Cardiac History: No Pertinent History Respiratory Surgery: No Pertinent History GI Surgical History: Colon Resection, Appendectomy, Cholecystectomy Genitourinary Surgical Hx: No Pertinent History Musculskeletal Surgical Hx: No Pertinent History Female Surgical History: Hysterectomy Other Surgical History: exploratory kidney surgery Significant Family History: no pertinent family hx - Social History Smoking Status: Former smoker Exposure to second hand smoke: No Alcohol: None Drug Use: none - Social Determinants of Health Will the patient participate in the screening: Declined to provide - Physical Exam Vital Signs: Vital Signs - 24 hr Temp Pulse Resp BP Pulse Ox 06/01/24 11:00 85 16 119/80 98 06/01/24 10:30 90 16 161/94 98 06/01/24 10:01 60 18 159/87 76 L 06/01/24 09:30 70 16 138/68 95 06/01/24 09:29 135/75 97 06/01/24 08:38 79 17 111/72 98 06/01/24 07:28 97.8 F General Appearance: no apparent distress, alert Neurologic Exam: alert, oriented x 3, cooperative, normal mood/affect, nml cerebellar function, nml station & gait, sensation nml, No motor deficits Eye Exam: PERRL/EOMI, eyes nml inspection Ears, Nose, Throat Exam: normal ENT inspection, TMs normal, pharynx normal, moist mucous membranes Neck Exam: normal inspection, non-tender, supple, full range of motion Respiratory Exam: normal breath sounds, lungs clear, No respiratory distress Cardiovascular Exam: regular rate/rhythm, normal heart sounds, normal peripheral pulses Gastrointestinal/Abdomen Exam: soft, tenderness (with palpation- generalized.), other (hypoactice BS x4 quad), No mass Back Exam: normal inspection, normal range of motion, No CVA tenderness, No vertebral tenderness Extremity Exam: normal inspection, normal range of motion, pelvis stable Skin Exam: normal color, warm, dry, No rash Lymphatic Exam: No adenopathy Results - Labs Lab/Micro Results: Lab Results-Last 24 Hours 06/01/24 06/01/24 06/01/24 Range/Units 07:45 08:10 08:10 WBC 10.5 H (3.98-10.04) x10^3/uL RBC 4.55 (3.93-5.22) x10^6/uL Hgb 12.8 (11.2-15.7) g/dL Hct 39.5 (34.1-44.9) % MCV 86.8 (79.4-94.8) fL MCH 28.1 (25.6-32.2) pg MCHC 32.4 (32.2-35.5) g/dL RDW 14.2 (11.7-14.4) % Plt Count 221 (182-369) x10^3/uL MPV 9.8 (9.4-12.3) fL Gran % 64.0 (34.0-71.1) % Immature Gran % (Auto) 0.2 (0.001-0.429) % Nucleat RBC Rel Count 0.0 (0.00-0.2) % Eos # (Auto) 0.04 (0.04-0.36) x10^3/uL Immature Gran # (Auto) 0.02 (0.001-0.031) x10^3u/L Absolute Lymphs (auto) 3.26 (1.18-3.74) x10^3/uL Absolute Monos (auto) 0.42 (0.24-0.86) x10^3/uL Absolute Nucleated RBC 0.00 (0.00-0.012) x10^3u/L Lymphocytes % 31.2 (19.3-51.7) % Monocytes % 4.0 L (4.7-12.5) % Eosinophils % 0.4 L (0.7-5.8) % Basophils % 0.2 (0.1-1.2) % Absolute Granulocytes 6.70 H (1.56-6.13) x10^3/uL Basophils # 0.02 (0.01-0.08) x10^3/uL Sodium 133 L (135-145) mmol/L Potassium 5.0 (3.5-5.1) mmol/L Chloride 106 (98-107) mmol/L Carbon Dioxide 19 L (22-30) mmol/L Anion Gap 13.4 (5-15) MEQ/L BUN 25 H (7-17) mg/dL Creatinine 0.95 (0.52-1.04) mg/dL Estimated GFR 59.8 ML/MIN Glucose 110 H (74-106) mg/dL Calcium 10.3 H (8.4-10.2) mg/dL Magnesium 1.8 (1.6-2.3) mg/dL Total Bilirubin 0.80 (0.2-1.3) mg/dL AST 26 (14-36) U/L ALT 20 (0-35) U/L Alkaline Phosphatase 69 (38-126) U/L Troponin I < 0.012 (0.000-0.033) ng/mL Serum Total Protein 6.7 (6.3-8.2) g/dL Albumin 4.1 (3.5-5.0) g/dL Amylase 73 (30-110) U/L Lipase 112 (23-300) U/L Urine Color (Yellow) Urine Appearance (Clear) Urine pH (4.6-8.0) Ur Specific [place] (1.005-1.030) Urine Protein (Negative) Urine Glucose (UA) (Negative) mg/dL Urine Ketones (Negative) Urine Blood (Negative) Urine Nitrite (Negative) Urine Bilirubin (Negative) Urine Urobilinogen (0.2) mg/dL Ur Leukocyte Esterase (Negative) U Hyaline Cast (Auto) (0-2) /LPF Urine Microscopic RBC (0-5) /HPF Urine Microscopic WBC (0-5) /HPF Ur Epithelial Cells (None Seen) /HPF Urine Bacteria (None Seen) /HPF Urine Culture Reflexed (NO) 06/01/24 Range/Units 10:22 WBC (3.98-10.04) x10^3/uL RBC (3.93-5.22) x10^6/uL Hgb (11.2-15.7) g/dL Hct (34.1-44.9) % MCV (79.4-94.8) fL MCH (25.6-32.2) pg MCHC (32.2-35.5) g/dL RDW (11.7-14.4) % Plt Count (182-369) x10^3/uL MPV (9.4-12.3) fL Gran % (34.0-71.1) % Immature Gran % (Auto) (0.001-0.429) % Nucleat RBC Rel Count (0.00-0.2) % Eos # (Auto) (0.04-0.36) x10^3/uL Immature Gran # (Auto) (0.001-0.031) x10^3u/L Absolute Lymphs (auto) (1.18-3.74) x10^3/uL Absolute Monos (auto) (0.24-0.86) x10^3/uL Absolute Nucleated RBC (0.00-0.012) x10^3u/L Lymphocytes % (19.3-51.7) % Monocytes % (4.7-12.5) % Eosinophils % (0.7-5.8) % Basophils % (0.1-1.2) % Absolute Granulocytes (1.56-6.13) x10^3/uL Basophils # (0.01-0.08) x10^3/uL Sodium (135-145) mmol/L Potassium (3.5-5.1) mmol/L Chloride (98-107) mmol/L Carbon Dioxide (22-30) mmol/L Anion Gap (5-15) MEQ/L BUN (7-17) mg/dL Creatinine (0.52-1.04) mg/dL Estimated GFR ML/MIN Glucose (74-106) mg/dL Calcium (8.4-10.2) mg/dL Magnesium (1.6-2.3) mg/dL Total Bilirubin (0.2-1.3) mg/dL AST (14-36) U/L ALT (0-35) U/L Alkaline Phosphatase (38-126) U/L Troponin I (0.000-0.033) ng/mL Serum Total Protein (6.3-8.2) g/dL Albumin (3.5-5.0) g/dL Amylase (30-110) U/L Lipase (23-300) U/L Urine Color Yellow (Yellow) Urine Appearance Clear (Clear) Urine pH 5.5 (4.6-8.0) Ur Specific [place] 1.015 (1.005-1.030) Urine Protein Negative (Negative) Urine Glucose (UA) Negative (Negative) mg/dL Urine Ketones Negative (Negative) Urine Blood Negative (Negative) Urine Nitrite Negative (Negative) Urine Bilirubin Negative (Negative) Urine Urobilinogen 0.2 (0.2) mg/dL Ur Leukocyte Esterase Negative (Negative) U Hyaline Cast (Auto) NONE SEEN (0-2) /LPF Urine Microscopic RBC 0-2 (0-5) /HPF Urine Microscopic WBC 3-5 (0-5) /HPF Ur Epithelial Cells Rare (None Seen) /HPF Urine Bacteria None Seen (None Seen) /HPF Urine Culture Reflexed NO (NO) - Radiology Impressions Radiology Exams & Impressions: Radiology Procedures Category Date Time Status ABDOMEN AND PELVIS W/0 CONTRAS [CT] Stat Exams 06/01/24 08:38 Completed Assessment/Plan (1) Small bowel obstruction, partial Current Visit: Yes Status: Acute Assessment & Plan: - as seen on CT abd - NPO - IVF - Tele - consider surgery consult - Protonix - Zofran- PRN Code(s): K56.600 - PARTIAL INTESTINAL OBSTRUCTION, UNSPECIFIED TO CAUSE (2) Metabolic acidosis Current Visit: Yes Status: Acute Assessment & Plan: - 2:2 N/V/D - Co2 19 - 1 L NS IVF bolus gave in the ER - Continue IVF Code(s): E87.20 - ACIDOSIS, UNSPECIFIED (3) Diarrhea Current Visit: Yes Status: Acute Qualifiers: Diarrhea type: unspecified type Qualified Code(s): R19.7 - Diarrhea, unspecified Assessment & Plan: - c-diff pending - start probiotocs when not NPO - IVF - CBC, CMP reviewed Code(s): R19.7 - DIARRHEA, UNSPECIFIED (4) Nausea and vomiting in adult patient Current Visit: Yes Status: Acute Assessment & Plan: - protonix - zofran - 2:2 bowel obstruction Code(s): R11.2 - NAUSEA WITH VOMITING, UNSPECIFIED (5) HTN (hypertension) Current Visit: Yes Status: Chronic Assessment & Plan: - BP stable - continue home meds VTE: Heparin PPI: Protonix Next of KIN: Spouse D/C plan: 1-2 days Code(s): I10 - ESSENTIAL (PRIMARY) HYPERTENSION Telemedicine Encounter - Telemedicine Encounter Telemedicine Encounter: "The entirety of this encounter was performed via Telemedicine" This visit was performed using real-time audio and video connection between my location and thepatients locationwith the assistance of a surrogateat the patients location. Written or verbal consent was obtained from the patient/guardian to perform this visit us[facility]. Any patient questions regarding the telemedicine interaction were answered. <HARRY SINGH - Last Filed: 06/01/24 21:19> History of Present Illness - Chief Complaint History of Present Illness: is a 84 year old female. - Physical Exam Vital Signs: Vital Signs - 24 hr Temp Pulse Resp BP BP BP Pulse Ox 06/01/24 20:00 98.2 F 108 H 14 121/61 95 06/01/24 19:05 102 H 18 95 06/01/24 16:00 97.5 F 101 H 14 144/66 97 06/01/24 15:29 98 06/01/24 11:46 97.5 F 89 18 133/68 97 06/01/24 11:00 85 16 119/80 98 06/01/24 10:30 90 16 161/94 98 06/01/24 10:01 60 18 159/87 76 L 06/01/24 09:30 70 16 138/68 95 06/01/24 09:29 135/75 97 06/01/24 08:38 79 17 111/72 98 06/01/24 07:28 97.8 F Results - Labs Lab/Micro Results: Lab Results-Last 24 Hours 06/01/24 06/01/24 06/01/24 Range/Units 07:45 08:10 08:10 WBC 10.5 H (3.98-10.04) x10^3/uL RBC 4.55 (3.93-5.22) x10^6/uL Hgb 12.8 (11.2-15.7) g/dL Hct 39.5 (34.1-44.9) % MCV 86.8 (79.4-94.8) fL MCH 28.1 (25.6-32.2) pg MCHC 32.4 (32.2-35.5) g/dL RDW 14.2 (11.7-14.4) % Plt Count 221 (182-369) x10^3/uL MPV 9.8 (9.4-12.3) fL Gran % 64.0 (34.0-71.1) % Immature Gran % (Auto) 0.2 (0.001-0.429) % Nucleat RBC Rel Count 0.0 (0.00-0.2) % Eos # (Auto) 0.04 (0.04-0.36) x10^3/uL Immature Gran # (Auto) 0.02 (0.001-0.031) x10^3u/L Absolute Lymphs (auto) 3.26 (1.18-3.74) x10^3/uL Absolute Monos (auto) 0.42 (0.24-0.86) x10^3/uL Absolute Nucleated RBC 0.00 (0.00-0.012) x10^3u/L Lymphocytes % 31.2 (19.3-51.7) % Monocytes % 4.0 L (4.7-12.5) % Eosinophils % 0.4 L (0.7-5.8) % Basophils % 0.2 (0.1-1.2) % Absolute Granulocytes 6.70 H (1.56-6.13) x10^3/uL Basophils # 0.02 (0.01-0.08) x10^3/uL Sodium 133 L (135-145) mmol/L Potassium 5.0 (3.5-5.1) mmol/L Chloride 106 (98-107) mmol/L Carbon Dioxide 19 L (22-30) mmol/L Anion Gap 13.4 (5-15) MEQ/L BUN 25 H (7-17) mg/dL Creatinine 0.95 (0.52-1.04) mg/dL Estimated GFR 59.8 ML/MIN Glucose 110 H (74-106) mg/dL Calcium 10.3 H (8.4-10.2) mg/dL Magnesium 1.8 (1.6-2.3) mg/dL Total Bilirubin 0.80 (0.2-1.3) mg/dL AST 26 (14-36) U/L ALT 20 (0-35) U/L Alkaline Phosphatase 69 (38-126) U/L Troponin I < 0.012 (0.000-0.033) ng/mL Serum Total Protein 6.7 (6.3-8.2) g/dL Albumin 4.1 (3.5-5.0) g/dL Amylase 73 (30-110) U/L Lipase 112 (23-300) U/L Urine Color (Yellow) Urine Appearance (Clear) Urine pH (4.6-8.0) Ur Specific [place] (1.005-1.030) Urine Protein (Negative) Urine Glucose (UA) (Negative) mg/dL Urine Ketones (Negative) Urine Blood (Negative) Urine Nitrite (Negative) Urine Bilirubin (Negative) Urine Urobilinogen (0.2) mg/dL Ur Leukocyte Esterase (Negative) U Hyaline Cast (Auto) (0-2) /LPF Urine Microscopic RBC (0-5) /HPF Urine Microscopic WBC (0-5) /HPF Ur Epithelial Cells (None Seen) /HPF Urine Bacteria (None Seen) /HPF Urine Culture Reflexed (NO) 06/01/24 Range/Units 10:22 WBC (3.98-10.04) x10^3/uL RBC (3.93-5.22) x10^6/uL Hgb (11.2-15.7) g/dL Hct (34.1-44.9) % MCV (79.4-94.8) fL MCH (25.6-32.2) pg MCHC (32.2-35.5) g/dL RDW (11.7-14.4) % Plt Count (182-369) x10^3/uL MPV (9.4-12.3) fL Gran % (34.0-71.1) % Immature Gran % (Auto) (0.001-0.429) % Nucleat RBC Rel Count (0.00-0.2) % Eos # (Auto) (0.04-0.36) x10^3/uL Immature Gran # (Auto) (0.001-0.031) x10^3u/L Absolute Lymphs (auto) (1.18-3.74) x10^3/uL Absolute Monos (auto) (0.24-0.86) x10^3/uL Absolute Nucleated RBC (0.00-0.012) x10^3u/L Lymphocytes % (19.3-51.7) % Monocytes % (4.7-12.5) % Eosinophils % (0.7-5.8) % Basophils % (0.1-1.2) % Absolute Granulocytes (1.56-6.13) x10^3/uL Basophils # (0.01-0.08) x10^3/uL Sodium (135-145) mmol/L Potassium (3.5-5.1) mmol/L Chloride (98-107) mmol/L Carbon Dioxide (22-30) mmol/L Anion Gap (5-15) MEQ/L BUN (7-17) mg/dL Creatinine (0.52-1.04) mg/dL Estimated GFR ML/MIN Glucose (74-106) mg/dL Calcium (8.4-10.2) mg/dL Magnesium (1.6-2.3) mg/dL Total Bilirubin (0.2-1.3) mg/dL AST (14-36) U/L ALT (0-35) U/L Alkaline Phosphatase (38-126) U/L Troponin I (0.000-0.033) ng/mL Serum Total Protein (6.3-8.2) g/dL Albumin (3.5-5.0) g/dL Amylase (30-110) U/L Lipase (23-300) U/L Urine Color Yellow (Yellow) Urine Appearance Clear (Clear) Urine pH 5.5 (4.6-8.0) Ur Specific [place] 1.015 (1.005-1.030) Urine Protein Negative (Negative) Urine Glucose (UA) Negative (Negative) mg/dL Urine Ketones Negative (Negative) Urine Blood Negative (Negative) Urine Nitrite Negative (Negative) Urine Bilirubin Negative (Negative) Urine Urobilinogen 0.2 (0.2) mg/dL Ur Leukocyte Esterase Negative (Negative) U Hyaline Cast (Auto) NONE SEEN (0-2) /LPF Urine Microscopic RBC 0-2 (0-5) /HPF Urine Microscopic WBC 3-5 (0-5) /HPF Ur Epithelial Cells Rare (None Seen) /HPF Urine Bacteria None Seen (None Seen) /HPF Urine Culture Reflexed NO (NO) - Radiology Impressions Radiology Exams & Impressions: Radiology Procedures Category Date Time Status ABDOMEN AND PELVIS W/0 CONTRAS [CT] Stat Exams 06/01/24 08:38 Completed - Other Procedures and Tests Respiratory Therapy 06/01/24 13:23 Oxygen Nasal Cannula 2 lpm 06/01/24 13:24 Respiratory Therapy Assessment DAILY Telemedicine Encounter - Telemedicine Encounter Telemedicine Encounter: "The entirety of this encounter was performed via Telemedicine" This visit was performed using real-time audio and video connection between my location and thepatients locationwith the assistance of a surrogateat the patients location. Written or verbal consent was obtained from the patient/guardian to perform this visit usingOGSystem[facility]lemedicine technology. Any patient questions regarding the telemedicine interaction were answered. SEMAJ Encounter - SEMAJ Encounter Attestation SEMAJ Encounter Attestation: "IhavepersonallyseenandexBARBER Blackburn andbenedictoiscussed pertinent aspects of their care with Britney Walsh agree with the history, physical exam (any modifications based on my personal exam will be note d below), assessment, and plan as outlined in original note. Please see immediately below for my summary of findings and additional assessment and plan along with any meaningful corrections/explanations to the Subjective/Objective portions of the SEMAJ note will be noted." My portion of the encounter took place via telemedicine. 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 Will admit as patient unable to tolerate po due to nausea. NPO, IVF for now, consult surgery if worsening of symptoms.
[2024-06-01] MEDS ORDERED: Zofran 4 MG/2 ML VIAL IV PRN (12:27)
[2024-06-01] MEDS ORDERED: PROVENTIL 2.5 MG/3 ML NEB IH ONE (13:28)
[2024-06-01] MEDS: Sodium Chloride 0.9% 1000 ML 1,000 ML IV SCH (14:45)
[2024-06-01] MEDS: PROVENTIL 2.5 MG/3 ML NEB IH SCH (15:33)
[2024-06-01] MEDS: Ambien 5 MG Tablet PO SCH (21:00)
[2024-06-01] MEDS: HEPARIN 5000 UNITS/0.5 ML (HIGH RISK MED) SQ SCH (21:00)
[2024-06-02 04:35] LABS: Hematocrit 32.6 % (34.1-44.9); Hemoglobin 10.5 g/dL (11.2-15.7); Mean Cell Volume 86.5 fL (79.4-94.8); Mean Corpuscular Hemoglobin 27.9 pg (25.6-32.2); Mean Corpuscular Hgb Concent. 32.2 g/dL (32.2-35.5); Mean Platelet Volume 9.1 fL (9.4-12.3); Platelet Count 193 x10^3/uL (182-369); Red Blood Count 3.77 x10^6/uL (3.93-5.22); Red Cell Distribution Width 14.1 % (11.7-14.4); White Blood Count 6.9 x10^3/uL (3.98-10.04)
[2024-06-02 04:57] LABS: ALBUMIN 3.4 g/dL (3.5-5.0); ANION GAP 9.7 MEQ/L (5-15); BILIRUBIN,TOTAL 0.5 mg/dL (0.2-1.3); Calcium 8.9 mg/dL (8.4-10.2); Creatinine 1 0.89 mg/dL (0.52-1.04); EST GLOMERULAR FILTRATION RATE 64.7 ML/MIN; MAGNESIUM 1.8 mg/dL (1.6-2.3); Potassium 4.1 mmol/L (3.5-5.1)
[2024-06-02 07:02] VITALS: BP 153/67; PULSE 111; RESP 16; TEMP 98.2; O2SAT 95
--- NOTE | 2024-06-02 07:59 | PCM.DS ---
Discharge Summary Date of Admission: 06/01/24 11:24 Date of Discharge: 06/02/24 Admitting Physician: HARRY SINGH MD Primary Care Provider: REED CALERO MD Allergies Allergies codeine Allergy (Verified 06/01/24 07:43) erythromycin base Allergy (Verified 06/01/24 07:43) Iodinated Contrast Media Allergy (Verified 06/01/24 07:43) prednisone Allergy (Verified 06/01/24 07:43) tetracycline Allergy (Verified 06/01/24 07:43) Hospital Summary - Hospital Course Hospital Course: 06/01/24 is a 84 year old female with pmhx of HTN, COPD (baseline 3lNC), arrythmia, hernia, and ulcer. 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 Today she was brought into ED by ambulance with c/o vomiting and diarrhea. Patient states that she has been vomiting and had diarrhea all night, doesn't know when it started or when it ended. Patient has abdominal pain in the upper quads that starts in the middle and radiates to the side. Decreased bowel sounds present in all 4 quads, vitals wnl, on 3L of oxygen nasal cannula. Reports several BM's of diarrhea last night and this AM, skin w/n/d, pulses normal, patient doesn't appear to be in any distress at this time. She reported some nausea today after trying to drink pedialyte in the ER. She last vomited yesterday. She continues to have abd pain but not severe and describes it as feeling like she needs to have a BM. IV fulids, Zofran, protonix gave in ER and will continue. CT abd shows early SBO. Will keep pt NPO and continue IV fluids. She denies any further concerns at this time. 06/02/24 Pt resting in bed. She states she feels fine and really needs to leave today as her is ill and cannot be left alone. She reports anxiety r/t this. Discu ssed if she can eat a clear liquid diet w/o vomiting she can d/c. She has had no N/V/D or abd pain overnight or today. She is on baseline O2 of 3LNC. Unable to obtain c-diff test as she has not had any diarrhea since admission. She denies any further concerns at this time. - Vitals & Intake/Output Vital Signs: Vital Signs Temperature 98.2 F 06/02/24 07:01 Pulse Rate 111 H 06/02/24 07:01 Respiratory Rate 16 06/02/24 07:01 Blood Pressure 153/67 06/02/24 07:01 O2 Sat by Pulse Oximetry 95 06/02/24 07:01 Intake & Output: Intake & Output 05/30/24 05/31/24 06/01/24 06/02/24 11:59 11:59 11:59 11:59 Intake Total 790 Output Total 350 Balance 440 Weight 62.2 kg - Lab Result Diagrams: 06/02/24 04:32 06/02/24 04:32 Lab Results-Last 24 Hrs: Lab Results-Last 24 Hours 06/01/24 06/01/24 06/01/24 Range/Units 07:45 08:10 08:10 WBC 10.5 H (3.98-10.04) x10^3/uL RBC 4.55 (3.93-5.22) x10^6/uL Hgb 12.8 (11.2-15.7) g/dL Hct 39.5 (34.1-44.9) % MCV 86.8 (79.4-94.8) fL MCH 28.1 (25.6-32.2) pg MCHC 32.4 (32.2-35.5) g/dL RDW 14.2 (11.7-14.4) % Plt Count 221 (182-369) x10^3/uL MPV 9.8 (9.4-12.3) fL Gran % 64.0 (34.0-71.1) % Immature Gran % (Auto) 0.2 (0.001-0.429) % Nucleat RBC Rel Count 0.0 (0.00-0.2) % Eos # (Auto) 0.04 (0.04-0.36) x10^3/uL Immature Gran # (Auto) 0.02 (0.001-0.031) x10^3u/L Absolute Lymphs (auto) 3.26 (1.18-3.74) x10^3/uL Absolute Monos (auto) 0.42 (0.24-0.86) x10^3/uL Absolute Nucleated RBC 0.00 (0.00-0.012) x10^3u/L Lymphocytes % 31.2 (19.3-51.7) % Monocytes % 4.0 L (4.7-12.5) % Eosinophils % 0.4 L (0.7-5.8) % Basophils % 0.2 (0.1-1.2) % Absolute Granulocytes 6.70 H (1.56-6.13) x10^3/uL Basophils # 0.02 (0.01-0.08) x10^3/uL Sodium 133 L (135-145) mmol/L Potassium 5.0 (3.5-5.1) mmol/L Chloride 106 (98-107) mmol/L Carbon Dioxide 19 L (22-30) mmol/L Anion Gap 13.4 (5-15) MEQ/L BUN 25 H (7-17) mg/dL Creatinine 0.95 (0.52-1.04) mg/dL Estimated GFR 59.8 ML/MIN Glucose 110 H (74-106) mg/dL Calcium 10.3 H (8.4-10.2) mg/dL Magnesium 1.8 (1.6-2.3) mg/dL Total Bilirubin 0.80 (0.2-1.3) mg/dL AST 26 (14-36) U/L ALT 20 (0-35) U/L Alkaline Phosphatase 69 (38-126) U/L Troponin I < 0.012 (0.000-0.033) ng/mL Serum Total Protein 6.7 (6.3-8.2) g/dL Albumin 4.1 (3.5-5.0) g/dL Amylase 73 (30-110) U/L Lipase 112 (23-300) U/L Urine Color (Yellow) Urine Appearance (Clear) Urine pH (4.6-8.0) Ur Specific [place] (1.005-1.030) Urine Protein (Negative) Urine Glucose (UA) (Negative) mg/dL Urine Ketones (Negative) Urine Blood (Negative) Urine Nitrite (Negative) Urine Bilirubin (Negative) Urine Urobilinogen (0.2) mg/dL Ur Leukocyte Esterase (Negative) U Hyaline Cast (Auto) (0-2) /LPF Urine Microscopic RBC (0-5) /HPF Urine Microscopic WBC (0-5) /HPF Ur Epithelial Cells (None Seen) /HPF Urine Bacteria (None Seen) /HPF Urine Culture Reflexed (NO) 06/01/24 06/02/24 06/02/24 Range/Units 10:22 04:32 04:32 WBC 6.9 (3.98-10.04) x10^3/uL RBC 3.77 L (3.93-5.22) x10^6/uL Hgb 10.5 L (11.2-15.7) g/dL Hct 32.6 L (34.1-44.9) % MCV 86.5 (79.4-94.8) fL MCH 27.9 (25.6-32.2) pg MCHC 32.2 (32.2-35.5) g/dL RDW 14.1 (11.7-14.4) % Plt Count 193 (182-369) x10^3/uL MPV 9.1 L (9.4-12.3) fL Gran % (34.0-71.1) % Immature Gran % (Auto) (0.001-0.429) % Nucleat RBC Rel Count (0.00-0.2) % Eos # (Auto) (0.04-0.36) x10^3/uL Immature Gran # (Auto) (0.001-0.031) x10^3u/L Absolute Lymphs (auto) (1.18-3.74) x10^3/uL Absolute Monos (auto) (0.24-0.86) x10^3/uL Absolute Nucleated RBC (0.00-0.012) x10^3u/L Lymphocytes % (19.3-51.7) % Monocytes % (4.7-12.5) % Eosinophils % (0.7-5.8) % Basophils % (0.1-1.2) % Absolute Granulocytes (1.56-6.13) x10^3/uL Basophils # (0.01-0.08) x10^3/uL Sodium 137 (135-145) mmol/L Potassium 4.1 (3.5-5.1) mmol/L Chloride 111 H (98-107) mmol/L Carbon Dioxide 21 L (22-30) mmol/L Anion Gap 9.7 (5-15) MEQ/L BUN 17 (7-17) mg/dL Creatinine 0.89 (0.52-1.04) mg/dL Estimated GFR 64.7 ML/MIN Glucose 89 (74-106) mg/dL Calcium 8.9 (8.4-10.2) mg/dL Magnesium 1.8 (1.6-2.3) mg/dL Total Bilirubin 0.50 (0.2-1.3) mg/dL AST 25 (14-36) U/L ALT 13 (0-35) U/L Alkaline Phosphatase 60 (38-126) U/L Troponin I (0.000-0.033) ng/mL Serum Total Protein 6.0 L (6.3-8.2) g/dL Albumin 3.4 L (3.5-5.0) g/dL Amylase (30-110) U/L Lipase (23-300) U/L Urine Color Yellow (Yellow) Urine Appearance Clear (Clear) Urine pH 5.5 (4.6-8.0) Ur Specific [place] 1.015 (1.005-1.030) Urine Protein Negative (Negative) Urine Glucose (UA) Negative (Negative) mg/dL Urine Ketones Negative (Negative) Urine Blood Negative (Negative) Urine Nitrite Negative (Negative) Urine Bilirubin Negative (Negative) Urine Urobilinogen 0.2 (0.2) mg/dL Ur Leukocyte Esterase Negative (Negative) U Hyaline Cast (Auto) NONE SEEN (0-2) /LPF Urine Microscopic RBC 0-2 (0-5) /HPF Urine Microscopic WBC 3-5 (0-5) /HPF Ur Epithelial Cells Rare (None Seen) /HPF Urine Bacteria None Seen (None Seen) /HPF Urine Culture Reflexed NO (NO) - Radiology Exams Ordered Rad Exams-Entire Visit: Radiology Procedures Category Date Time Status ABDOMEN AND PELVIS W/0 CONTRAS [CT] Stat Exams 06/01/24 08:38 Completed - Procedures and Test Procedures and Tests throughout Hospitalization: Therapy Orders & Screens 06/01/24 12:37 RT Screen per Nursing Assess ONCE Comment: Protocol Order Physician Instructions: Greater than 3 points order RT Admission Screen Reason For Exam: Triggered on Admission Diagnosis: small bowel obstruction Diagnosis: small bowel obstruction Pneumonia: No Home O2: Yes Asthma: No CHF: No Home CPAP/BIPAP: No Home Nebs/MDI: Yes Total Points: 10 ST Screen per Nursing Assess ONCE Comment: Protocol Order Physician Instructions: Greater than [address] Admission Screening Reason For Exam: Triggered on Admission Diagnosis: small bowel obstruction CVA/Dyshpagia/Aphasia: No Cognitive Deficits: No Dehydration/Nutrition Deficit: Yes Reflux: Yes Oral-Motor Difficulties: No Pneumonia: No [facility]ci Resident: No Total Points: 8 06/01/24 13:23 Oxygen Nasal Cannula 2 lpm Comment: Diagnosis: small bowel obstruction 06/01/24 13:24 Respiratory Therapy Assessment DAILY Comment: Diagnosis: small bowel obstruction Discharge Exam General Appearance: no apparent distress, alert, anxiety Neurologic Exam: alert, oriented x 3, cooperative, normal mood/affect, nml cerebellar function, sensation nml, No motor deficits Eye Exam: PERRL, EOMI, eyes nml inspection Ears, Nose, Throat Exam: normal ENT inspection, pharynx normal, moist mucous membranes Neck Exam: normal inspection, non-tender, supple, full range of motion Respiratory Exam: normal breath sounds, lungs clear, No respiratory distress Cardiovascular Exam: regular rate/rhythm, normal heart sounds, tachycardia Gastrointestinal/Abdomen Exam: soft, No tenderness, No mass Pelvic Exam: deferred Rectal Exam: deferred Back Exam: normal inspection, normal range of motion, No CVA tenderness, No vertebral tenderness Extremity Exam: normal inspection, normal range of motion Skin Exam: normal color, warm, dry Final Diagnosis/Problem List - Final Discharge Diagnosis/Problem (1) Small bowel obstruction, partial Current Visit: Yes Status: Acute Code(s): K56.600 - PARTIAL INTESTINAL OBSTRUCTION, UNSPECIFIED TO CAUSE (2) Metabolic acidosis Current Visit: Yes Status: Acute Code(s): E87.20 - ACIDOSIS, UNSPECIFIED (3) Diarrhea Current Visit: Yes Status: Acute Code(s): R19.7 - DIARRHEA, UNSPECIFIED (4) Nausea and vomiting in adult patient Current Visit: Yes Status: Acute Code(s): R11.2 - NAUSEA WITH VOMITING, UNSPECIFIED (5) HTN (hypertension) Current Visit: Yes Status: Chronic Assessment & Plan: (1) Small bowel obstruction, partial Current Visit: Yes Status: Acute Assessment & Plan: - as seen on CT abd - NPO - IVF - Tele - consider surgery consult - Protonix - Zofran- PRN 06/02 - sxs resolved - start clear liquid diet and advance as tolerated Code(s): K56.600 - PARTIAL INTESTINAL OBSTRUCTION, UNSPECIFIED TO CAUSE (2) Metabolic acidosis Current Visit: Yes Status: Acute Assessment & Plan: - 2:2 N/V/D - Co2 19 - 1 L NS IVF bolus gave in the ER - Continue IVF 06/02 - Co2 21- improved Code(s): E87.20 - ACIDOSIS, UNSPECIFIED (3) Diarrhea Current Visit: Yes Status: Acute Qualifiers: Diarrhea type: unspecified type Qualified Code(s): R19.7 - Diarrhea, unspecified Assessment & Plan: - c-diff pending - start probiotocs when not NPO - IVF - CBC, CMP reviewed 06/02 - No overnight diarrhea- stool sample not obtained Code(s): R19.7 - DIARRHEA, UNSPECIFIED (4) Nausea and vomiting in adult patient Current Visit: Yes Status: Acute Assessment & Plan: - protonix - zofran - 2:2 bowel obstruction 06/02 - resolved Code(s): R11.2 - NAUSEA WITH VOMITING, UNSPECIFIED (5) HTN (hypertension) Current Visit: Yes Status: Chronic Assessment & Plan: - BP stable - continue home meds Code(s): I10 - ESSENTIAL (PRIMARY) HYPERTENSION (6) Anxiety Current Visit: Yes Status: Acute Assessment & Plan: - with associated tachycardia - pt wants to d/c to take care of her whom she reports is ill and alone at home. Code(s): F41.9 - ANXIETY DISORDER, UNSPECIFIED - Discharge Discharge Date: 06/02/24 Disposition: Home, Self-Care Condition: Stable Prescriptions: New Ondansetron ODT 4 MG [Zofran Odt 4 mg] 4 mg PO Q6H PRN PRN #20 tablet PRN Reason: Nausea/Vomiting Continue Metoprolol Tartrate 25 mg [Lopressor 25MG Tab] 25 mg PO BID Gabapentin [Neurontin] 600 mg PO TID Enalapril Maleate 5 mg [Vasotec 5 MG] 10 mg PO BID Amlodipine Besylate 5 mg [Norvasc 5 mg] 2.5 mg PO DAILY Clonidine HCl 0.1 mg [Clonidine 0.1 mg Tablet] 0.1 mg PO DAILY PRN PRN PRN Reason: Hypertension Pantoprazole Sodium [Protonix] 40 mg PO DAILY Eszopiclone 2 mg PO HS levalbuterol HCL [Levalbuterol HCl] 1 vial IH TID Fluticasone/Umeclidin/Vilanter [Trelegy Ellipta 200-62.5-25] 1 puff IH DAILY Instructions: Small bowel obstruction - Discharge instructions Follow up with: REED CALERO MD [Primary Care Provider] -
[2024-06-02] MEDS ORDERED: PROTONIX 40 MG IV IV SCH (10:00)
== END 2024-06-02 09:30 | disposition home or self-care (01) ==
LOC: ED 07:25 → MED SURG 11:24
PROVIDERS: ADMIT Internal Medicine; ATTEND Internal Medicine
DX: K56.600 Partial intestinal obstruction, unspecified as to cause (principal); E87.20 Acidosis, unspecified; R19.7 Diarrhea, unspecified; R11.2 Nausea with vomiting, unspecified; I10 Essential (primary) hypertension; F41.9 Anxiety disorder, unspecified; J44.9 Chronic obstructive pulmonary disease, unspecified; Z99.81 Dependence on supplemental oxygen; Z79.899 Other long term (current) drug therapy; Z90.49 Acquired absence of other specified parts of digestive tract
CPT/HCPCS: 36415; 74176; 80053; 81001; 82150; 83690; 83735; 84484; 85025; 85027; 87040; 93005; 93268; 94640; 94760; 96374; 96375; 99285; G0378; Q3014; J1644; J2405; J7609; A9270-GY

== ENCOUNTER 2024-06-24 13:17 | Emergency (ER) | payer MEDICARE, OTHER ==
[2024-06-24 13:37] VITALS: BP 159/75; PULSE 74; RESP 18; TEMP 97.7; O2SAT 96
[2024-06-24 14:21] LABS: Appearance Clear (Clear); Bacteria None Seen /HPF (None Seen); Bilirubin Negative (Negative); Blood Negative (Negative); Epithelial Cells None Seen /HPF (None Seen); Glucose, Urine Negative (Negative); Hyaline Casts NONE SEEN /LPF (0-2); Ketones Negative (Negative); Leukocyte Esterase Small (Negative); Nitrite Negative (Negative); Ph 5.5 (4.6-8.0); Protein,Urine Dip Negative (Negative); RBC 0-2 /HPF (0-5); Specific Gravity <=1.005 (1.005-1.030); Urobilinogen 0.2 mg/dL (0.2)
--- NOTE | 2024-06-24 14:25 | ERPHSYRPT ---
- History of Present Illness Time Seen by Provider: 06/24/24 13:50 Source: patient Exam Limitations: no limitations Patient Subjective Stated Complaint: C/O low back pain and right hip pain. Patient reports she fell at the end of May and was evaluated at that time. States the pain is becoming worse and would like reevaluated. Triage Nursing Assessment: Patient brought back to ER by W/C. Patient transferred from chair to bed with stand by assist. She is alert and oriented. Patient wearing 02 @ 3L per n/c upon arrival; wears this continuously at home and has nothing to do with ER visit today. Physician History: 84-year-old female presents to our ED with low back pain and right hip pain. Patient states she fell in May. Patient had the right hip and back pain checked at that time. Patient states that her back pain and right hip pain never resolved. Patient feels her symptoms are worsening. Patient requesting a CT of her lumbar spine and her right hip. No interval falls. No trauma no fever no nausea no vomiting no back pain no chest pain or shortness of breath. Patient otherwise feels well. She voices no other complaints or concerns at this time. No change in bowel bladder function. No saddle anesthesia. No lower extremity weakness. No fever. Patient declined pain medication Portions of this note were created with voice recognition technology. There may be grammatical, spelling, punctuation or sound alike errors Timing/Duration: today Severity: moderate Associated Symptoms: denies symptoms Allergies/Adverse Reactions: codeine Allergy (Verified 06/24/24 13:40) erythromycin base Allergy (Verified 06/24/24 13:40) Iodinated Contrast Media Allergy (Verified 06/24/24 13:40) prednisone Allergy (Verified 06/24/24 13:40) tetracycline Allergy (Verified 06/24/24 13:40) Home Medications: Enalapril Maleate 5 mg [Vasotec 5 MG] 10 mg PO BID 06/02/20 [History] Gabapentin [Neurontin] 600 mg PO TID 06/02/20 [History] Metoprolol Tartrate 25 mg [Lopressor 25MG Tab] 25 mg PO BID 06/02/20 [History] Amlodipine Besylate 5 mg [Norvasc 5 mg] 2.5 mg PO DAILY 12/12/22 [History] Clonidine HCl 0.1 mg [Clonidine 0.1 mg Tablet] 0.1 mg PO DAILY PRN PRN 01/07/24 [History] Pantoprazole Sodium [Protonix] 40 mg PO DAILY 05/04/24 [History] Eszopiclone 2 mg PO HS 05/28/24 [History] Fluticasone/Umeclidin/Vilanter [Trelegy Ellipta 200-62.5-25] 1 puff IH DAILY 06/01/24 [History] levalbuterol HCL [Levalbuterol HCl] 1 vial IH TID 06/01/24 [History] Hx Tetanus, Diphtheria Vaccination/Date Given: No (unknown) Hx Influenza Vaccination/Date Given: Yes Hx Pneumococcal Vaccination/Date Given: Yes Immunizations Up to Date: Yes Travel Risk - International Travel Have you traveled outside of the country in past 3 weeks: No - Emerging Infectious Disease Are you exhibiting symptoms associated with any current EIDs: No Symptoms: Abdominal Pain, Diarrhea, Vomitting - Review of Systems Constitutional: No Symptoms, No Fever, No Chills Eyes: No Symptoms Ears, Nose, & Throat: No Symptoms Respiratory: No Symptoms, No Cough, No Dyspnea Cardiac: No Symptoms, No Chest Pain, No Edema, No Syncope Abdominal/Gastrointestinal: No Symptoms, No Abdominal Pain, No Nausea, No Vomiting, No Diarrhea Genitourinary Symptoms: No Symptoms, No Dysuria Musculoskeletal: No Symptoms, No Back Pain, No Neck Pain Skin: No Symptoms, No Rash Neurological: No Symptoms, No Dizziness, No Focal Weakness, No Sensory Changes Psychological: No Symptoms Endocrine: No Symptoms Hematologic/Lymphatic: No Symptoms Immunological/Allergic: No Symptoms All Other Systems: Reviewed and Negative - Past Medical History Pertinent Past Medical History: Yes Neurological History: No Pertinent History ENT History: Other Cardiac History: Arrhythmia, Hypertension Respiratory History: COPD Endocrine Medical History: No Pertinent History Musculoskeletal History: No Pertinent History GI Medical History: Hernia, Ulcer History: No Pertinent History Psycho-Social History: No Pertinent History Female Reproductive Disorders: No Pertinent History Other Medical History: tachycardia, oxygen at home, barretts espophagus - Past Surgical History Past Surgical History: Yes Neuro Surgical History: No Pertinent History Cardiac: No Pertinent History Respiratory: No Pertinent History Gastrointestinal: Colon Resection, Appendectomy, Cholecystectomy Genitourinary: No Pertinent History Musculoskeletal: No Pertinent History Female Surgical History: Hysterectomy Other Surgical History: exploratory kidney surgery Significant Family History: no pertinent family hx - Social History Smoking Status: Former smoker Exposure to second hand smoke: No Drug Use: none Patient Lives Alone: No - Social Determinants of Health Will the patient participate in the screening: Declined to provide - Nursing Vital Signs Nursing Vital Signs: Initial Vital Signs Temperature 97.7 F 06/24/24 13:22 Pulse Rate 74 06/24/24 13:22 Respiratory Rate 18 06/24/24 13:22 Blood Pressure 159/75 06/24/24 13:22 O2 Sat by Pulse Oximetry 96 06/24/24 13:22 Pain Scale Pain Intensity 7 - Physical Exam General Appearance: no apparent distress, alert Eye Exam: PERRL/EOMI, eyes nml inspection Ears, Nose, Throat Exam: normal ENT inspection, moist mucous membranes Neck Exam: normal inspection, full range of motion Respiratory Exam: normal breath sounds, lungs clear, airway intact, No respiratory distress Cardiovascular Exam: regular rate/rhythm, normal peripheral pulses Gastrointestinal/Abdomen Exam: soft, normal bowel sounds, No tenderness, No mass Back Exam: normal inspection, normal range of motion, other (Some tenderness palpation of low back and right SI area. Tenderness to palpation to right lateral hip.), No CVA tenderness, No vertebral tenderness Extremity Exam: normal inspection, normal range of motion, pelvis stable Neurologic Exam: alert, oriented x 3, cooperative, normal mood/affect, sensation nml, No motor deficits Skin Exam: normal color, warm, dry, No rash Lymphatic Exam: No adenopathy SpO2 Interpretation: normal SpO2: 96 O2 Delivery: Room Air - Course Nursing assessment & vital signs reviewed: Yes - CT Exams Pelvis CT Interpretation: Tele-radiologist Report (New nondisplaced minimal healing fracture of the left superior and inferior pubic ramus. Right renal exophytic cyst) Lumbar Spine CT Interpretation: Tele-radiologist Report (No acute findings) Ordered Tests: Active Orders 24 hr Category Date Time Status LUMBAR SPINE W/O [CT] Stat Exams 06/24/24 13:24 Completed PELVIS WITHOUT CONTRAST [CT] Stat Exams 06/24/24 13:24 Completed UA W/RFX UR CULTURE Stat Lab 06/24/24 13:25 Completed Lab/Rad Data: Laboratory Results 06/24/24 Range/Units 13:25 Urine Color Yellow (Yellow) Urine Appearance Clear (Clear) Urine pH 5.5 (4.6-8.0) Ur Specific [place] <=1.005 (1.005-1.030) Urine Protein Negative (Negative) Urine Glucose (UA) Negative (Negative) mg/dL Urine Ketones Negative (Negative) Urine Blood Negative (Negative) Urine Nitrite Negative (Negative) Urine Bilirubin Negative (Negative) Urine Urobilinogen 0.2 (0.2) mg/dL Ur Leukocyte Esterase Small A (Negative) U Hyaline Cast (Auto) NONE SEEN (0-2) /LPF Urine Microscopic RBC 0-2 (0-5) /HPF Urine Microscopic WBC 6-10 A (0-5) /HPF Ur Epithelial Cells None Seen (None Seen) /HPF Urine Bacteria None Seen (None Seen) /HPF Urine Culture Reflexed NO (NO) - Progress Progress: improved Progress Note: Spoke to Dr. Vieyra of orthopedic surgery regarding the superior and inferior pubic rami fractures that are nondisplaced with minimal healing. He advised that patient may be able to go home. He will follow-up with patient regarding this finding in his clinic. He will also address patient's right hip pain. CT lumbar spine shows no fracture no acute findings. Will give patient a referral to the orthopedic clinic for further evaluation and treatment. Plan of care discussed with patient. She agrees to plan of care. She voices no other complaints or concerns at this time. Portions of this note were created with voice recognition technology. There may be grammatical, spelling, punctuation or sound alike errors Complexity of problem addressed is moderate acute complicated no critical care time. Complexity of data reviewed and analyzed is moderate. Test ordered chest reviewed results analyzed and correlated clinically with history and physical exam. Risk of complication and or risk of morbidity/mortality of patient management is low. Vital stable. Time spent to discharge patient is approximately 20 minutes. Plan of care established for shared decision making. No social determinants of health present to impede follow-up. Portions of this note were created with voice recognition technology. There may be grammatical, spelling, punctuation or sound alike errors 06/24/24 15:41 Counseled pt/family regarding: lab results, diagnosis, need for follow-up, rad results - Departure Departure Disposition: Home Clinical Impression: UTI (urinary tract infection) Condition: Stable Critical Care Time: No Referrals: REED CALERO MD [Primary Care Provider] - Follow up/PCP as directed Additional Instructions: Discharge/Care Plan BARBER ALBARRAN was seen on 06/24/24 in the Emergency Room. The patient was counseled regarding Diagnosis,Lab results, Imaging studies, need for follow up and when to return to the Emergency Room. Prescriptions given: Discharge Note I have spoken with the patient and/or caregivers. I have explained the patient's condition, diagnosis and treatment plan based on the information available to me at this time. I have answered the patient's and/or caregiver's questions and addressed any concerns. The patient and/or caregivers have as good understanding of the patient's diagnosis, condition and treatment plan as can be expected at this point. The vital signs have been stable. The patient's condition is stable and appropriate for discharge from the emergency department. The patient will pursue further outpatient evaluation with the primary care physician or other designated or consulting physician as outlined in the discharge instructions. The patient and/or caregivers are agreeable to this plan of care and follow-up instructions have been explained in detail. The patient and/or caregivers have received these instruction. The patient/and or caregivers are aware that any significant change in condition or worsening of symptoms should prompt an immediate return to this or the closest emergency department or call 911. Prescriptions: Nitrofurantoin Macro 100 mg [Macrobid 100MG Capsule] 100 mg PO BID 7 Days #14 cap Outpatient Orders: Ortho Referral Time Frame: 1 Day, Facility: [facility]. Hosp, Location: [facility]
--- NOTE | 2024-06-24 14:56 | XRAY ---
Indication: Pain following fall 4 weeks ago. Multiple contiguous axial images obtained through lumbar spine. Sagittal and coronal reformatted images obtained. Comparison: June 01, 2024 Osseous structures remain demineralized with grossly stable mild/moderate multilevel thoracolumbar degenerative spondylosis and moderate dextroscoliosis centered at L2. Again no acute fracture, subluxation, or suspicious bony lesions. SI joints bilaterally symmetric. Visualized noncontrasted soft tissues demonstrates bibasilar lung dependent atelectasis, right renal exophytic cyst, and mild scattered aortoiliac calcifications. Impression: No change compared to ER exam 3 weeks ago. Again chronic findings include osteopenia, multilevel degenerative spondylosis, dextroscoliosis, right renal cyst, and arteriosclerotic disease. No new/acute findings.
--- NOTE | 2024-06-24 15:04 | XRAY ---
Indication: Pain following fall 4 weeks ago. Multiple contiguous axial images obtained through pelvis with special attention to the osseous structures. Sagittal and coronal reformatted images obtained. Comparison: June 01, 2024 Osseous structures remain demineralized. Stable mild degenerative changes both hips and pubis symphysis. New nondisplaced minimal healing fractures left superior and inferior pubic rami. No suspicious bony lesions or osseous destructive process. SI joints bilaterally symmetric. Visualized noncontrasted soft tissues again demonstrates mild scattered aortoiliac calcifications. Impression: New nondisplaced healing fractures left superior/inferior pubic rami. Again chronic findings include osteopenia, bilateral hip degenerative arthropathy, and arteriosclerotic disease.
[2024-06-24] MEDS ORDERED: Macrobid 100MG Capsule ONE (15:57)
[2024-06-24] MEDS: Macrobid 100MG Capsule PO ONE (15:58)
== END 2024-06-24 16:28 | disposition home or self-care (01) ==
LOC: ED 13:17
DX: N39.0 Urinary tract infection, site not specified (principal); M54.50 Low back pain, unspecified; M25.551 Pain in right hip; W19.XXXD Unspecified fall, subsequent encounter
CPT/HCPCS: 72131; 72192; 81001; 99284; A9270-GY

== ENCOUNTER 2025-01-28 13:30 | Emergency (ER) | payer MEDICARE, OTHER ==
[2025-01-28 14:01] VITALS: RESP 18; TEMP 98.4
[2025-01-28 14:22] VITALS: BP 107/61; PULSE 78; O2SAT 95
--- NOTE | 2025-01-28 14:36 | ERPHSYRPT ---
- History of Present Illness Time Seen by Provider: 01/28/25 13:38 Source: patient Exam Limitations: no limitations Patient Subjective Stated Complaint: pt. states, "I was coming in the door in a hurry and caught my arm on a cabinet. I wasn't sure if it needed stitches." Triage Nursing Assessment: Pt amb. to room without diff., A&Ox4, Skin P/W/D, Resp. even unlabored, 2.5 cm skin tear to rt. posterior forearm. No active bleeding. Physician History: 84 years old female up-to-date with tetanus, history of chronic respiratory failure secondary to COPD on oxygen presented to the ER with complaints of laceration right forearm. Patient reports she was walking out of the door quickly and accidentally got edge of the cabinet with a skin tear. There was bleeding initially but stopped with applying pressure. Minimal discomfort. No injury anywhere else. Allergies/Adverse Reactions: codeine Allergy (Verified 12/12/24 01:51) erythromycin base Allergy (Verified 12/12/24 01:51) Iodinated Contrast Media Allergy (Verified 12/12/24 01:51) prednisone Allergy (Verified 12/12/24 01:51) tetracycline Allergy (Verified 12/12/24 01:51) Home Medications: Enalapril Maleate 5 mg [Vasotec 5 MG] 10 mg PO BID 06/02/20 [History] Gabapentin [Neurontin] 600 mg PO TID 06/02/20 [History] Metoprolol Tartrate 25 mg [Lopressor 25MG Tab] 25 mg PO BID 06/02/20 [History] Amlodipine Besylate 5 mg [Norvasc 5 mg] 2.5 mg PO DAILY 12/12/22 [History] Clonidine HCl 0.1 mg [Clonidine 0.1 mg Tablet] 0.1 mg PO DAILY PRN PRN 01/07/24 [History] Pantoprazole Sodium [Protonix] 40 mg PO DAILY 05/04/24 [History] Eszopiclone 2 mg PO HS 05/28/24 [History] Fluticasone/Umeclidin/Vilanter [Trelegy Ellipta 200-62.5-25] 1 puff IH DAILY 06/01/24 [History] levalbuterol HCL [Levalbuterol HCl] 1 vial IH TID 06/01/24 [History] Hx Tetanus, Diphtheria Vaccination/Date Given: Yes (unknown) Hx Influenza Vaccination/Date Given: Yes Hx Pneumococcal Vaccination/Date Given: Yes Immunizations Up to Date: No Travel Risk - International Travel Have you traveled outside of the country in past 3 weeks: No - Emerging Infectious Disease Are you exhibiting symptoms associated with any current EIDs: No Symptoms: Abdominal Pain, Diarrhea, Vomitting - Review of Systems Constitutional: No Symptoms Respiratory: Dyspnea Cardiac: No Symptoms Abdominal/Gastrointestinal: No Symptoms Musculoskeletal: Arthralgias Skin: No Symptoms Neurological: No Symptoms - Past Medical History Pertinent Past Medical History: Yes Neurological History: No Pertinent History ENT History: Other Cardiac History: Arrhythmia, Hypertension Respiratory History: COPD Endocrine Medical History: No Pertinent History Musculoskeletal History: No Pertinent History GI Medical History: Hernia, Ulcer History: No Pertinent History Psycho-Social History: No Pertinent History Female Reproductive Disorders: No Pertinent History Other Medical History: tachycardia, oxygen at home, barretts espophagus - Past Surgical History Past Surgical History: Yes Neuro Surgical History: No Pertinent History Cardiac: No Pertinent History Respiratory: No Pertinent History Gastrointestinal: Colon Resection, Appendectomy, Cholecystectomy Genitourinary: No Pertinent History Musculoskeletal: No Pertinent History Female Surgical History: Hysterectomy Other Surgical History: exploratory kidney surgery Significant Family History: no pertinent family hx - Social History Smoking Status: Never smoker Exposure to second hand smoke: No Drug Use: none - Social Determinants of Health Will the patient participate in the screening: Declined to provide - Nursing Vital Signs Nursing Vital Signs: Initial Vital Signs Temperature 98.4 F 01/28/25 13:31 Pulse Rate 82 01/28/25 13:31 Respiratory Rate 18 01/28/25 13:31 Blood Pressure 98/56 01/28/25 13:31 O2 Sat by Pulse Oximetry 93 L 01/28/25 13:31 Pain Scale Pain Intensity 2 - Physical Exam General Appearance: no apparent distress Neck Exam: normal inspection, full range of motion Cardiovascular/Respiratory Exam: regular rate/rhythm, No normal breath sounds (Few wheezing) Elbow/Forearm Exam: normal ROM, soft tissue tenderness (Skin tear right upper forearm. No active bleeding), No bone tenderness Hand Exam: normal inspection, non-tender, no evidence of injury, normal ROM Neuro/Tendon Exam: normal sensation, normal motor functions Mental Status Exam: alert, oriented x 3, cooperative Skin Exam: normal color SpO2 Interpretation: normal SpO2: 95 O2 Delivery: Room Air - Progress Progress: improved Progress Note: 01/28/25 14:31 Differential diagnosis: Arm laceration/contusion/skin tear 84-year-old is evaluated in the ER for right forearm skin tear. No osseous tenderness. Thoroughly cleaned and Steri-Strips applied by RN. Recommended Tylenol as needed. Patient is up-to-date with tetanus. Counseled pt/family regarding: diagnosis, need for follow-up Medical Desision Making - Diagnostic Testing Diagnostic test were ordered, analyzed, and reviewed by me: No - Risk of complications The pt has a mod risk of morbidity or mortality based on: Need for minor surgical intervention in patient with know risk factors - Departure Departure Disposition: Home Clinical Impression: Skin tear of forearm without complication Condition: Stable Critical Care Time: No Referrals: REED CALERO MD [Primary Care Provider, [facility]] - Follow up with PCP 1 day Instructions: Wound Care (DC) Additional Instructions: Take Tylenol as needed. Keep it clean and dry. Follow-up with primary care for reevaluation. Return to ER for any worsening of pain, if develop swelling discharge/fever chills etc.
== END 2025-01-28 14:47 | disposition home or self-care (01) ==
LOC: ED 13:30
DX: S51.811A Laceration without foreign body of right forearm, initial encounter (principal); W22.09XA Striking against other stationary object, initial encounter; I10 Essential (primary) hypertension; Z79.899 Other long term (current) drug therapy